=== PATIENT | female | born 1995 | race Caucasian/White ===

== ENCOUNTER → 2018-09-27 12:04 | Outpatient (CLI) | payer MEDICAID, SELFPAY ==
[2018-09-27 14:05] LABS: Absolute Lymphocyte Count 1.03 X10^3/ul (0.83-4.51); Absolute Neutrophil Count 5.7 X10^3/uL (2.0-7.7); Basophil# 0.01 X10^3/uL; Basophil% 0.1 % (0-1); Eosinophil# 0.06 X10^3/uL; Eosinophils% 0.8 % (0-5); Hematocrit 36.2 % (37-47); Hemoglobin 11.6 g/dl (12.0-15.0); Lymphocyte # 1.03 X10^3/ul (4.0); Lymphocyte % 14.5 % (19-41); Mean Corpuscular Hgb 25.7 pg (27.0-32.0); Mean Corpuscular Volume 80.1 fL (81-99); Mean Platelet Vol. 9.8 fl (6.2-12.0); Monocyte# 0.35 X10^3/uL; Monocyte% 4.9 % (0-10); Neutrophil # 5.65 X10^3/uL (2.7-7.7); Neutrophil % 79.6 % (47-70); Platelet Count 260 K/mm3 (150-450); RBC Distribution Width CV 15.8 % (11.6-14.6); RBC Distribution Width SD 45.3 fl (35.1-43.9); Red Blood Count 4.52 M/mm3 (4.2-5.4); White Blood Count 7.1 K/mm3 (4.4-11.0)
[2018-09-27 14:06] LABS: POSITIVE COUNT NO; POSITIVE DIFFERENTIAL NO; POSITIVE MORPHOLOGY NO
[2018-09-27 14:07] LABS: Glucose, Dipstick Normal (Normal); Ketone-Dipstick Negative (Negative); Leukocyte Esterase-Dipstick 500 /ul (Negative); Nitrite-Dipstick Negative (Negative); Occult Blood-Urine 25 /ul (Negative); Protein-Dipstick 30 mg/dl (Negative); Specific Gravity, Urine 1.015 (1.002-1.030); Urine Bilirubin Dipstick Negative (Negative); Urine Urobilinogen Normal (Normal)
[2018-09-27 14:11] LABS: Color, Urine Yellow (Yellow); Urine Clarity Cloudy (Clear)
[2018-09-27 14:14] LABS: Thyroid Stim Hormone (TSH) 1.41 uIU/mL (0.358-3.74)
[2018-09-27 14:54] LABS: HIV - WCH Non-Reactive (Nonreactive); Rubella IgG 127.9 IU/mL
[2018-09-27 17:49] LABS: Chlamydia Trachomatis by PCR Negative (Negative); Neisserai gonorrhoeae by PCR Negative (Negative); Probe Check PASS; Sample Adequacy Control PASS; Specimen Processing Control PASS
[2018-09-28 22:03] LABS: Prenatal RPR NONREACTIVE (NONREACTIVE)
[2018-09-29 22:36] LABS: HEPATITIS B SURFACE AG Negative (Negative); Hep C Antibodies <0.1 s/co ratio (0.0-0.9)
== END ==
PROVIDERS: Visit Provider Obstetrics & Gynecology
DX: Z34.82 Encounter for supervision of other normal pregnancy, second trimester (principal)
CPT/HCPCS: 36415; 81002; 84443; 85025; 86703; 86762; 86803; 87340; 87491; 87591; 88175; G0145

== ENCOUNTER → 2019-01-17 | Outpatient (CLI) | payer MEDICAID, SELFPAY ==
[2019-01-17 13:46] LABS: Hematocrit 31.2 % (37-47); Hemoglobin 9.6 g/dl (12.0-15.0); Mean Corp Hgb Conc 30.8 g/gl (32-36); Mean Corpuscular Hgb 23.2 pg (27.0-32.0); Mean Corpuscular Volume 75.4 fL (81-99); Mean Platelet Vol. 9.6 fl (6.2-12.0); Platelet Count 231 K/mm3 (150-450); RBC Distribution Width CV 15.4 % (11.6-14.6); RBC Distribution Width SD 42.2 fl (35.1-43.9); Red Blood Count 4.14 M/mm3 (4.2-5.4); White Blood Count 6.7 K/mm3 (4.4-11.0)
[2019-01-17 13:49] LABS: Scan Indicated on CBC? Y/N NO
[2019-01-17 13:50] LABS: Glucose Challenge Gest 1H 50g 64 mg/dL (70-140)
== END | disposition home or self-care (01) ==
LOC: LABSPEC 11:22
PROVIDERS: Visit Provider Obstetrics & Gynecology
DX: Z34.82 Encounter for supervision of other normal pregnancy, second trimester (principal)
CPT/HCPCS: 82950; 85027

== ENCOUNTER → 2020-10-31 13:04 | Outpatient (CLI) | payer MEDICAID, SELFPAY ==
[2020-11-04 20:32] LABS: HPV APTIMA, High Risk Negative (Negative); HPV Reflexed? YES, CHARGE PATIENT
== END ==
PROVIDERS: Visit Provider Obstetrics & Gynecology
DX: Z12.4 Encounter for screening for malignant neoplasm of cervix (principal)
CPT/HCPCS: 87624; 88175; G0145

== ENCOUNTER 2021-09-22 16:48 | Outpatient (CLI) | payer MEDICAID, SELFPAY | END 2021-09-22 23:59 | disposition home or self-care (01) | LOC: LABSPEC 17:00 | PROVIDERS: Referring Provider Physician Assistant; Visit Provider Physician Assistant | DX: Z20.822 Contact with and (suspected) exposure to COVID-19 (principal) | CPT/HCPCS: 87635; U0003; U0005 ==

== ENCOUNTER 2023-05-02 00:43 | Emergency (ER) | payer OTHER, MEDICAID, SELFPAY ==
[2023-05-02 00:44] VITALS: BP 140/71; PULSE 83; RESP 16; TEMP 36.4; O2SAT 95; BMI 26.7
--- NOTE | 2023-05-02 02:07 | EX.ED.DYSGE1 ---
HPI History of Present Illness Chief Complaint: Abscess Informant: patient Narrative Narrative: Patient is a 27-year-old female with past medical history of ADHD the acne. 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 She states that despite taking the medication she has developed swelling and pain to the forehead. She states she believes the area was initially just a pimple but as the swelling and pain has progressed she has concern for abscess as she has had those in the past and therefore comes in for evaluation. [facility] Medical History (Updated 05/02/23 @ 03:[address] Shen Cid, DO) ADD (attention deficit disorder) Home Medications dextroamphetamine-amphetamine ER 10 mg 24hr capsule,extend release (Adderall XR) 10 mg PO .afternoon 05/02/23 [History Last Taken Unknown] dextroamphetamine-amphetamine ER 5 mg 24hr capsule,extend release 20 mg PO DAILY 05/02/23 [History Last Taken Unknown] doxycycline monohydrate 100 mg capsule 100 mg PO DAILY 05/02/23 [History Last Taken Unknown] duloxetine 60 mg capsule,delayed release 60 mg PO DAILY 05/02/23 [History Last Taken Unknown] ferrous sulfate 325 mg (65 mg iron) tablet (Feosol) 325 mg PO DAILY 05/02/23 [History Last Taken Unknown] oxycodone-acetaminophen 5 mg-325 mg tablet (Percocet) 1 tab PO Q6H PRN pain 3 days #12 tabs 05/02/23 [Rx Last Taken Unknown] sulfamethoxazole 800 mg-trimethoprim 160 mg tablet (Bactrim DS) 1 tab PO BID 7 days #14 tabs 05/02/23 [Rx Last Taken Unknown] Allergy/AdvReac Type Severity Reaction Status Date / Time No Known Allergies Allergy Verified 05/02/23 00:46 Surgical History (Updated 05/02/23 @ 00:51 by Thu Acuna) H/O section Social History Smoking Status: Current every day smoker tobacco type: e-cigarettes ROS ROS ED Constitutional Constitutional ED: Denies chills or fever(s) ENT ENT ED: Denies sore throat Cardiovascular Cardiovascular: Denies chest pain Respiratory/Chest Respiratory/Chest: Denies cough or dyspnea Gastrointestinal Gastrointestinal: Denies abdominal pain, diarrhea, nausea or vomiting Genitourinary Genitourinary ED: Denies dysuria Musculoskeletal Musculoskeletal: Denies myalgias Integumentary Reports abscess Neurologic Neurologic: Denies headache(s) Hematologic/Lymphatic Hematologic/Lymphatic: Denies easy bleeding or easy bruising EXAM Physical Exam Const Vital Signs: 05/02/23 00:44 Temperature 97.5 F L Temperature Source Temporal Pulse Rate 83 Respiratory Rate 16 Blood Pressure 140/71 H Blood Pressure Mean 94 Pulse Ox 95 Oxygen Delivery Method Room Air Positive well nourished and well developed General Appearance ED: well developed HEENT HEENT Narrative: Along the right portion of the forehead there is a 2 x 3 cm area of fluctuance with mild erythema and warmth concerning for abscess. No active drainage noted. No lymphangitic streaking. Eyes PERRL and EOMs intact bilaterally Neck supple Neck Narrative: No nuchal rigidity or meningeal signs present Resp normal respiratory effort and clear to auscultation bilaterally Cardio regular rate and regular rhythm Extremity normal to inspection Neuro oriented x3, CN's II-XII intact bilaterally and no sensory deficits noted Sensorium / Orientation: alert Motor Exam: strength 5/5 throughout Psych mental status grossly normal Skin Skin Narrative: Soft tissue change of the forehead concerning for abscess as documented above MDM MDM MDM Narrative Medical decision making narrative: Patient presented to the ER hypertensive otherwise with stable vitals. She reported increasing swelling to the forehead after what she believed was initial pimple. At this time exam and history is consistent with abscess versus acne versus cellulitis versus cyst. As there is no signs of systemic infection I do not feel there is need for imaging or laboratory study. Based on the progression of the soft tissue swelling and abscess I did elect to perform an incision and drainage as documented below. Patient does not have history of immunosuppression but as she is on once a day doxycycline for acne I advised her to continue the medication but added Bactrim twice a day for 1 week for any potential retained infection. At this time however the abscess has been incised and drained she does not have physical exam findings to suggest systemic infection and otherwise is safe for discharge Patient had her forehead cleaned with chlorhexidine. The area was anesthetized with 5 mLs of 2% lidocaine with epinephrine local fashion. A #11 blade was used to make a 1 cm incision. There is expression of blood and small amount of purulent material. Loculations were dissected with a needle siddiqi. The area was copiously irrigated with normal saline. Patient tolerated procedure well without complication. History & Record Review Discussion w/independent historian: Patient and Family Discharge Plan Triage Chief Complaint: Abscess ED Provider: Shen Cid Dx/Rx/DC Orders Clinical Impression: Abscess of face, ADD (attention deficit disorder) Instructions: ED Abscess Incision And Drainage Prescriptions: New sulfamethoxazole-trimethoprim [Bactrim DS] 800-160 mg tablet 1 tab PO BID 7 Days Qty: 14 0RF oxycodone-acetaminophen [Percocet] 5-325 mg tablet 1 tab PO Q6H PRN (Reason: pain) 3 Days Qty: 12 0RF No Action duloxetine 60 mg capsule,delayed release(DR/EC) 60 mg PO DAILY Patient Comments: TAKE 1 CAPSULE BY MOUTH EVERY DAY ferrous sulfate [Feosol] 325 mg (65 mg iron) tablet 325 mg PO DAILY doxycycline monohydrate 100 mg capsule 100 mg PO DAILY Patient Comments: TAKE 1 CAPSULE BY MOUTH ONCE A DAY WITH FATTY FOODS & A FULL GLASS OF WATER. dextroamphetamine-amphetamine 5 mg capsule,extended release 24hr 20 mg PO DAILY Patient Comments: TAKE 1 CAPSULE BY MOUTH EVERY DAY IN THE AFTERNOON dextroamphetamine-amphetamine [Adderall XR] 10 mg capsule,extended release 24hr 10 mg PO .afternoon Patient Comments: TAKE 1 CAPSULE BY MOUTH EVERY DAY Primary Care Provider: Radhika Enrique Referrals: Radhika Enrique NP-C [Primary Care Provider] - Activity Restrictions/Additional Instructions: The area of infection should improve/heal over the next 2 to 3 days with the incision and drainage that was performed in the ER. You can continue your doxycycline once a day but add Bactrim twice a day for the next 7 days as directed for improved infection control. If you have worsening of symptoms or any further concerns please return for repeat evaluation. Disposition Disposition: Home, Self Care Discharge Date/Time: 05/02/23 02:16
== END 2023-05-02 02:16 | disposition home or self-care (01) ==
PROVIDERS: Emergency Provider Emergency Medicine; PCP Nurse Practitioner Family; Visit Provider Emergency Medicine
DX: L02.01 Cutaneous abscess of face (principal); F17.210 Nicotine dependence, cigarettes, uncomplicated; F90.0 Attention-deficit hyperactivity disorder, predominantly inattentive type
CPT/HCPCS: 99282

== ENCOUNTER 2023-05-21 19:39 | Emergency (ER) | payer OTHER, SELFPAY ==
[2023-05-21 19:40] VITALS: BP 146/88; PULSE 79; RESP 15; TEMP 36.6; O2SAT 100
--- NOTE | 2023-05-21 19:56 | EDS_ITS ---
HPI History of Present Illness Chief Complaint: Lower Extremity Injury [facility] Medical History (Updated 05/10/23 @ 00:01 by Susan Rodriguez) ADD (attention deficit disorder) Home Medications dextroamphetamine-amphetamine ER 10 mg 24hr capsule,extend release (Adderall XR) 10 mg PO .afternoon 05/02/23 [History Last Taken Unknown] dextroamphetamine-amphetamine ER 5 mg 24hr capsule,extend release 20 mg PO DAILY 05/02/23 [History Last Taken Unknown] doxycycline monohydrate 100 mg capsule 100 mg PO DAILY 05/02/23 [History Last Taken Unknown] duloxetine 60 mg capsule,delayed release 60 mg PO DAILY 05/02/23 [History Last Taken Unknown] ferrous sulfate 325 mg (65 mg iron) tablet (Feosol) 325 mg PO DAILY 05/02/23 [History Last Taken Unknown] oxycodone-acetaminophen 5 mg-325 mg tablet (Percocet) 1 tab PO Q6H PRN pain 3 days #12 tabs 05/02/23 [Rx Last Taken Unknown] sulfamethoxazole 800 mg-trimethoprim 160 mg tablet (Bactrim DS) 1 tab PO BID 7 days #14 tabs 05/02/23 [Rx Last Taken Unknown] Allergy/AdvReac Type Severity Reaction Status Date / Time No Known Allergies Allergy Verified 05/21/23 19:43 Surgical History (Updated 05/02/23 @ 00:51 by Thu Acuna) H/O section Social History Smoking Status: Current every day smoker tobacco type: e-cigarettes EXAM Physical Exam Const Vital Signs: 05/21/23 19:40 Temperature 97.8 F Temperature Source Temporal Pulse Rate 79 Respiratory Rate 15 Blood Pressure 146/88 H Blood Pressure Mean 107 Pulse Ox 100 Oxygen Delivery Method Room Air [facility] MDM Narrative Medical decision making narrative: HISTORY OF PRESENT ILLNESS: 27-year-old female here with left foot injury. States he dropped something heavy on her left foot. She states she has constant pain since then. REVIEW OF SYSTEMS: Pertinent positives: foot pain Pertinent negatives: Sensation. PHYSICAL EXAM: Nursing triage notes reviewed, Vital signs reviewed Constitutional: please see mdm Extremities: No edema TTP over left foot. Neuro: Intact sensation L1-S1 dermatomal distributions. Intact 5/5 strength in hip flexion (T12-L3). Knee extension (L2-L4). Ankle dorsiflexion (L4-L5). Ankle plantar flexion (S1). Great toe extension (L5). 2+ patellar and Achilles DTRs. Skin: No noted bruising over left foot, no evidence of open fracture MEDICAL DECISION MAKING: Chief Complaint: Foot pain External records reviewed: Imaging reviewed: No recent images of the involved ex tremity Factors affecting care: ADHD Social determinants of health: none History obtained from others: none Consults: none MDM Narrative: Patient was hemodynamically stable, afebrile, nontoxic-appearing. I considered the following differential diagnosis: Fracture, dislocation, contusion I obtained an x-ray. ALL IMAGES (IF OBTAINED) HAVE BEEN PERSONALLY REVIEWED AND INTERPRETED BY YONATAN TEJADA. X-ray by my read show no evidence of acute fracture dislocation. Radiologist agreed my interpretation. The patient is likely suffering from contusion. She is given instructions take Tylenol, ibuprofen she was instructed to start rice therapy. The patient and/or family, caregivers express understanding. The patient and/or family, caregivers agrees with the plan. Shared decision making: I will have a discussion with the patient and or visitors regarding risk/benefits of further testing or admission. They will be made aware of of the risk/benefits inherent in this decision they will be given the opportunity to voice understanding. Total critical care time today provided was at least 0 minutes. This excludes separately billable procedures. Critical care time (if documented) is secondary to the patient having high probability of clinically significant/life threatening deterioration in the patient's condition which required my urgent intervention. Impression: 1. Foot contusion Dispo: Discharge Radiography Chest X-Ray - ED: Read by ED Physician Diagnostic Testing: Clinical Impression(s) from Imaging Studies Foot X-Ray 05/21/23 20:00 IMPRESSION: No acute bony injury. Electronically Signed: Marbin Colbert MD at 21:01 EDT Reading Location ID and State: [facility] / [place] Tel , Service support , Discharge Plan Triage Chief Complaint: Lower Extremity Injury ED Provider: Antonio Cotton Dx/Rx/DC Orders Instructions: ED Foot Contusion, ED RICE Prescriptions: No Action duloxetine 60 mg capsule,delayed release(DR/EC) 60 mg PO DAILY Patient Comments: TAKE 1 CAPSULE BY MOUTH EVERY DAY ferrous sulfate [Feosol] 325 mg (65 mg iron) tablet 325 mg PO DAILY doxycycline monohydrate 100 mg capsule 100 mg PO DAILY Patient Comments: TAKE 1 CAPSULE BY MOUTH ONCE A DAY WITH FATTY FOODS & A FULL GLASS OF WATER. dextroamphetamine-amphetamine 5 mg capsule,extended release 24hr 20 mg PO DAILY Patient Comments: TAKE 1 CAPSULE BY MOUTH EVERY DAY IN THE AFTERNOON dextroamphetamine-amphetamine [Adderall XR] 10 mg capsule,extended release 24hr 10 mg PO .afternoon Patient Comments: TAKE 1 CAPSULE BY MOUTH EVERY DAY sulfamethoxazole-trimethoprim [Bactrim DS] 800-160 mg tablet 1 tab PO BID 7 Days Qty: 14 0RF oxycodone-acetaminophen [Percocet] 5-325 mg tablet 1 tab PO Q6H PRN (Reason: pain) 3 Days Qty: 12 0RF Primary Care Provider: Radhika Enrique Referrals: Radhika Enrique, ENDS DOWN CHECKER-C [Primary Care Provider] - Activity Restrictions/Additional Instructions: Thank you for trusting us with your care today! Please take Tylenol (2 pills, 650 mg), ibuprofen (2 pills, 400 mg) every 6 hours as needed for pain and fever control. Please return to the emergency department if your symptoms change or worsen. Please follow with your primary care physician for further outpatient evaluation and management. Disposition Disposition: Home, Self Care
--- NOTE | 2023-05-21 20:00 | RAD_ITS ---
INDICATION: Trauma, object dropped on foot with dorsal midfoot pain EXAMINATION/TECHNIQUE: X-RAY - LEFT XR Foot Min 3 Views 3 VIEWS COMPARISON: None. FINDINGS: SOFT TISSUES: No soft tissue swelling or gas. No radiopaque foreign body. BONES/JOINTS: No acute fracture. Joint spaces anatomically aligned. RAD/Foot min 3 Views IMPRESSION: No acute bony injury. Electronically Signed: Marbin Colbert MD at 21:01 EDT ,
[2023-05-21] MEDS: Ibuprofen 200 MG Tablet 400 MG PO (21:24)
== END 2023-05-21 21:36 | disposition home or self-care (01) ==
PROVIDERS: Emergency Provider Emergency Medicine; PCP Nurse Practitioner Family; Visit Provider Emergency Medicine
DX: S90.32XA Contusion of left foot, initial encounter (principal); F90.9 Attention-deficit hyperactivity disorder, unspecified type; Z79.899 Other long term (current) drug therapy; F17.290 Nicotine dependence, other tobacco product, uncomplicated; W22.8XXA Striking against or struck by other objects, initial encounter
CPT/HCPCS: 73630; 99282

== ENCOUNTER 2023-06-16 13:13 | Emergency (ER) | payer SELFPAY ==
[2023-06-16 13:14] VITALS: BP 149/86; PULSE 88; RESP 14; TEMP 36.1; O2SAT 100; BMI 26.2
[2023-06-16] MEDS: Lidocaine 1% (20 ml mdv) 20 ML Vial 5 ML INFILT (14:32)
[2023-06-16] MEDS: Lidocaine/Epi/Tetracaine 50 ML 1 APPLIC TOPICAL (14:32)
--- NOTE | 2023-06-16 16:01 | EX.ED.DYSGE1 ---
HPI History of Present Illness Chief Complaint: Abscess Detail of Chief Complaint: Forehead abscess. Informant: patient Onset/Context/Timing Onset: Days Context: Gradual Onset Timing: Continuous Maximum Severity: Mild Narrative Narrative: 27-year-old female history of prior forehead abscess that was treated with Bactrim 5 weeks ago and improved but now is returned. She denies any other symptoms. She is not diabetic. Prior similar symptoms: Yes Recent Illness/Hospitalization: No PFSH PFSH Medical History ADD (attention deficit disorder) Home Medications dextroamphetamine-amphetamine ER 10 mg 24hr capsule,extend release (Adderall XR) 10 mg PO .afternoon 05/02/23 [History Last Taken Unknown] dextroamphetamine-amphetamine ER 5 mg 24hr capsule,extend release 20 mg PO DAILY 05/02/23 [History Last Taken Unknown] doxycycline monohydrate 100 mg capsule 100 mg PO DAILY 05/02/23 [History Last Taken Unknown] duloxetine 60 mg capsule,delayed release 60 mg PO DAILY 05/02/23 [History Last Taken Unknown] ferrous sulfate 325 mg (65 mg iron) tablet (Feosol) 325 mg PO DAILY 05/02/23 [History Last Taken Unknown] oxycodone-acetaminophen 5 mg-325 mg tablet (Percocet) 1 tab PO Q6H PRN pain 3 days #12 tabs 05/02/23 [Rx Last Taken Unknown] sulfamethoxazole 800 mg-trimethoprim 160 mg tablet (Bactrim DS) 1 tab PO BID 7 days #14 tabs 05/02/23 [Rx Last Taken Unknown] cephalexin 500 mg capsule 500 mg PO Q8H 10 days #30 caps 06/16/23 [Rx Last Taken Unknown] sulfamethoxazole 800 mg-trimethoprim 160 mg tablet (Bactrim DS) 1 tab PO BID 10 days #20 tabs 06/16/23 [Rx Last Taken Unknown] Allergy/AdvReac Type Severity Reaction Status Date / Time No Known Allergies Allergy Verified 06/16/23 13:14 Surgical History H/O section Social History Smoking Status: Current every day smoker tobacco type: e-cigarettes ROS ROS ED ROS Narrative Denies recent illness. Review of Systems ROS Unobtainable: Denies due to encephalopathy Constitutional Constitutional ED: Denies chills or fever(s) Eyes Eyes: Denies blurry vision ENT ENT ED: Denies ear pain Cardiovascular Cardiovascular: Denies chest pain Respiratory/Chest Respiratory/Chest: Denies cough or dyspnea Gastrointestinal Gastrointestinal: Denies abdominal pain Genitourinary Genitourinary ED: Denies dysuria or hematuria Musculoskeletal Musculoskeletal: Denies arthralgias Integumentary Reports abscess Neurologic Neurologic: Denies headache(s) Psychiatric Psychiatric: Denies anxiety Endocrine Endocrinology: Denies cold intolerance Hematologic/Lymphatic Hematologic/Lymphatic: Reports none Allergic/Immunologic Allergic/Immunologic ED: Denies mouth swelling, tongue swelling or urticaria EXAM Physical Exam Narrative Exam Narrative: -year-old female vital signs are stable and afebrile. No acute distress. HEENT exam is a lesion on her right forehead appears to be infected. It is tender to palpation. It is slightly inflamed. There is no significant fluid collection. Pupils round and light. She also has a lesion that is flat on her chin. Neck nontender. No lymphadenopathy. Lungs clear to auscultation. Heart regular rhythm no murmur. Abdomen soft nontender. Moving all 4 extremities. Const Vital Signs: 06/16/23 13:14 Temperature 97 F L Temperature Source Temporal Pulse Rate 88 Respiratory Rate 14 Blood Pressure 149/86 H Blood Pressure Mean 107 Pulse Ox 100 Oxygen Delivery Method Room Air Positive well nourished and well developed; Negative for obese, cachectic, contractures or unkempt General Appearance ED: well developed and NAD; Negative for unkempt, cachectic, contractures, cyanotic, diaphoretic or pallor Nutritional Appearance: Negative for cachectic or obese HEENT Reports moist mucous membranes Negative for trauma or tenderness Eyes PERRL and EOMs intact bilaterally General Eye ED: Negative for pale conjunctiva, scleral icterus or other Neck no lymphadenopathy, supple and no JVD General: Negative for tenderness Lymph Lymphatic: Negative for other Chest Wall inspection of chest normal and palpation of chest normal Resp normal respiratory effort and clear to auscultation bilaterally Effort and Inspection: Negative for retractions Auscultation: Negative for rales, rhonchi or wheezes Cardio regular rate, regular rhythm, S1 normal heart sound, S2 normal heart sound and no murmurs GI normal to inspection, nondistended, normoactive bowel sounds, non-tender, non-distended and no masses Inspection: Negative for abdominal distention Auscultation: normoactive bowel sounds Palpation: soft; Negative for tender or guarding Extremity normal to inspection General Extremety ED: Negative for edema or tenderness General Extremity: Negative for edema Neuro CN's II-XII intact bilaterally Sensorium / Orientation: alert; Negative for orientation impaired Motor Exam: strength 5/5 throughout Psych mental status grossly normal Appearance: Negative for unkempt Attitude: No agitated Mood & Affect: Negative for depressed, anxious or tearful Skin No no rashes or lesions noted, no wounds and skin turgor normal Skin Narrative: Right forehead infection possible abscess. Not significant fluctuance. General Skin Exam: elasticity normal; Negative for jaundice or pallor Lesions: lesion noted Rashes: No rashes noted Trauma: Negative for abrasion Wounds: Negative for wounds noted MDM MDM MDM Narrative Medical decision making narrative: 27-year-old recurrent right forehead infection. Cellulitis versus abscess. Area was locally anesthetized with let. Cleaned with Shur-Clens wash with saline. Then anesthetized locally with lidocaine. I made a 1 to 2 cm horizontal incision. I was unable to express any pus with manipulation of the area or probing with forceps. Believe this is infected tissue with no abscess formation. No pus pocket. Patient be discharged home on Keflex and Bactrim. Follow-up with a telephone lineman. History & Record Review Discussion w/independent historian: Patient Additional record(s) reviewed:: Prior inpatient record, Prior outpatient record, Prior ED visit and Prior labs Procedures Other Procedures Procedure(s): Right forehead infection. Anesthetized with let. Lidocaine locally. Incised with an 11 blade 1 to 2 cm. Probed with forceps small amount of blood no pus. Patient tolerated well. Discharge Plan Triage Chief Complaint: Abscess ED Provider: Kirill Greene Dx/Rx/DC Orders Clinical Impression: Abscess Instructions: Abscess Drainage Prescriptions: New cephalexin 500 mg capsule 500 mg PO Q8H 10 Days Qty: 30 0RF sulfamethoxazole-trimethoprim [Bactrim DS] 800-160 mg tablet 1 tab PO BID 10 Days Qty: 20 0RF No Action duloxetine 60 mg capsule,delayed release(DR/EC) 60 mg PO DAILY Patient Comments: TAKE 1 CAPSULE BY MOUTH EVERY DAY ferrous sulfate [Feosol] 325 mg (65 mg iron) tablet 325 mg PO DAILY doxycycline monohydrate 100 mg capsule 100 mg PO DAILY Patient Comments: TAKE 1 CAPSULE BY MOUTH ONCE A DAY WITH FATTY FOODS & A FULL GLASS OF WATER. dextroamphetamine-amphetamine 5 mg capsule,extended release 24hr 20 mg PO DAILY Patient Comments: TAKE 1 CAPSULE BY MOUTH EVERY DAY IN THE AFTERNOON dextroamphetamine-amphetamine [Adderall XR] 10 mg capsule,extended release 24hr 10 mg PO .afternoon Patient Comments: TAKE 1 CAPSULE BY MOUTH EVERY DAY sulfamethoxazole-trimethoprim [Bactrim DS] 800-160 mg tablet 1 tab PO BID 7 Days Qty: 14 0RF oxycodone-acetaminophen [Percocet] 5-325 mg tablet 1 tab PO Q6H PRN (Reason: pain) 3 Days Qty: 12 0RF Primary Care Provider: Radhika Enrique Referrals: Maryann Padilla MD [Non-Staff] - As soon as possible Radhika Enrique, SEQUENCING MACHINE OPERATOR-C [Primary Care Provider] - Activity Restrictions/Additional Instructions: Warm compresses to your forehead. Keep a Band-Aid on it. Motrin and Tylenol for pain. Call and follow-up with a local telephone lineman. Flex 1 pill 3 times a day and Bactrim 1 pill twice a day for 10 days. Disposition Disposition: Home, Self Care
[2023-06-16] MEDS: Cephalexin 250 MG Capsule 500 MG PO (16:10)
[2023-06-16] MEDS: Smz/Tmp Ds Tablet 1 TABLET PO (16:10)
== END 2023-06-16 16:16 | disposition home or self-care (01) ==
PROVIDERS: Emergency Provider Emergency Medicine; PCP Nurse Practitioner Family; Visit Provider Emergency Medicine
DX: L02.01 Cutaneous abscess of face (principal); F98.8 Other specified behavioral and emotional disorders with onset usually occurring in childhood and adolescence; Z79.899 Other long term (current) drug therapy; F17.290 Nicotine dependence, other tobacco product, uncomplicated
CPT/HCPCS: 10060; 99283

== ENCOUNTER 2024-12-12 11:17 | Observation (INO) | payer MEDICAID, SELFPAY ==
[2024-12-12 11:18] VITALS: BP 138/59; PULSE 97; RESP 17; TEMP 36.6; O2SAT 100; BMI 24.7
--- NOTE | 2024-12-12 11:40 | EX.ED.DYSGE1 ---
HPI History of Present Illness Chief Complaint: Abd Pain Narrative Narrative: Chief complaint and HPI: Right lower quadrant abdominal pain. 29-year-old female with past medical history of x 2 and tubal ligation, depression presents for evaluation of right lower quadrant abdominal pain. Patient states yesterday she developed diffuse abdominal pain. States she thought she was constipated. Does endorse a constipated bowel movement yesterday evening however pain has continued. Pain is now located more in the right lower quadrant. Worse with movement. Last ate at 9 AM. Endorses nausea but no emesis. Denies any fever, chills, shortness of breath, chest pain, dysuria, hematuria, diarrhea. Review of systems: See HPI Medications: As listed on the chart Allergies: As listed on the chart PFSH: Per chart Vital signs: As listed on the chart. Reviewed. Physical exam: Gen: A&O x3, NAD Head: Normocephalic, atraumatic Eyes: No sclera icterus, conjunctiva clear ENT: Moist mucous membranes Neck: Trachea midline, No JVD CV: RRR, no murmurs, no peripheral edema Resp: Lungs CTA BL, no w/r/c GI: Abd soft, non-distended, tender to palpation of the right lower quadrant, no rebound or rigidity : No CVA tenderness Musc: Full ROM, no deformity Skin: Warm, dry Neuro: Alert, oriented, grossly intact, sensation intact Psych: Cooperative, appropriate mood and affect [facility] Medical History ADD (attention deficit disorder) Home Medications ?Medication ?Instructions ?Recorded ?Last Taken ?Type duloxetine 60 mg capsule,delayed 60 mg PO DAILY 05/02/23 12/12/24 History release ferrous sulfate 325 mg (65 mg 325 mg PO DAILY 05/02/23 12/11/24 History iron) tablet (Feosol) acetaminophen 325 mg tablet (Aphen) 650 mg PO Q4H PRN pain 12/12/24 12/12/24 History celecoxib 200 mg capsule 200 mg PO BID PRN pain 12/12/24 12/11/24 History dextroamphetamine-amphetamine 5 mg 1 tab PO DAILY 12/12/24 12/07/24 History tablet dextroamphetamine-amphetamine ER 1 cap PO DAILY 12/12/24 12/07/24 History 25 mg 24hr capsule,extend release ergocalciferol (vitamin D2) 1,250 1,250 mcg PO QWEEK 12/12/24 12/10/24 History mcg (50,000 unit) capsule Allergy/AdvReac Type Severity Reaction Status Date / Time No Known Allergies Allergy Verified 12/12/24 11:21 Surgical History H/O section Social History Smoking Status: Current every day smoker tobacco type: e-cigarettes EXAM Physical Exam Const Vital Signs: 12/12/24 11:18 12/12/24 13:18 Temperature 97.9 F Temperature Source Temporal Pulse Rate 97 78 Respiratory Rate 17 16 Blood Pressure 138/59 H 120/68 Blood Pressure Mean 85 85 Pulse Ox 100 98 Oxygen Delivery Method Room Air Room Air MDM MDM MDM Narrative Medical decision making narrative: 29-year-old female with past medical history of x 2 and tubal ligation, depression presents for evaluation of right lower quadrant abdominal pain. Associated symptoms nausea. Differential diagnosis includes but is not limited to appendicitis, gastroenteritis, UTI, colitis, constipation. NS bolus, Zofran, morphine ordered for symptoms. Abdominal pain workup ordered including CT abdomen and pelvis. CBC without leukocytosis or anemia. CMP unremarkable without electrolyte abnormality, LISA or transaminitis. Lipase unremarkable. Serum negative. UA negative for UTI. CT abdomen pelvis shows cholelithiasis without evidence of acute cholecystitis. Enlarged globular uterus which may be normal or secondary to adenomyosis, , or endometriosis. Enlarged right ovary with multiple simple cysts. If concern for ovarian pathology, recommend ultrasound. Nondependent gas within the urinary bladder. On reevaluation, patient is still endorsing some right lower quadrant abdominal pain therefore pelvic ultrasound ordered to assess for pelvic/ovarian pathology. Pelvic ultrasound pending at this time. Patient signed out to Dr. Andrea. Final disposition pending results however if negative patient will be discharged home and follow-up outpatient. Impression: 1. Right lower quadrant abdominal pain 2. Enlarged right ovary with multiple simple cysts Lab Data Labs: Laboratory Results - last 24 hr 12/12/24 12/12/24 11:56 12:50 WBC 9.9 RBC 4.62 Hgb 13.7 Hct 40.3 MCV 87.2 MCH 29.7 MCHC 34.0 RDW Std Deviation 39.1 RDW Coeff of [place] 12.2 Plt Count 226 MPV 9.1 Immature Gran % (Auto) 0.700 Neut % (Auto) 82.3 H Lymph % (Auto) 7.1 L [place] % (Auto) 9.2 Eos % (Auto) 0.5 Baso % (Auto) 0.2 Absolute Neuts (auto) 8.2 H Absolute Lymphs (auto) 0.70 L Nucleated RBC % 0 Sodium 136 Potassium 3.7 Chloride 103 Carbon Dioxide 24.4 Anion Gap 9 BUN 9 Creatinine 0.71 Estim Creat Clear Calc 114.72 Est GFR (MDRD) Non-Af 119 BUN/Creatinine Ratio 12.3 Glucose 96 Calcium 9.2 Total Bilirubin 0.92 AST 17 ALT 15 Alkaline Phosphatase 61 Total Protein 6.7 Albumin 4.2 Globulin 2.5 Albumin/Globulin Ratio 1.7 Lipase 16 Serum , Qual NEGATIVE Urine Color Yellow Urine Clarity Clear Urine pH 7.0 Ur Specific [place] 1.005 Urine Protein Negative Urine Glucose (UA) Normal Urine Ketones Negative Urine Occult Blood Negative Urine Nitrite Negative Urine Bilirubin Negative Urine Urobilinogen Normal Ur Leukocyte Esterase 25 H Urine RBC 0 SEEN Urine WBC 0-5 SEEN Ur Squamous Epith Cells 0-5 SEEN Urine Bacteria 0 SEEN Urine Mucus 0 SEEN Radiography Diagnostic Testing: Clinical Impression(s) from Imaging Studies Abdomen/Pelvis CT 12/12/24 13:00 IMPRESSION: 1. Cholelithiasis without evidence of acute cholecystitis. If clinical concern for gallbladder pathology, limited right upper quadrant ultrasound could be obtained for further evaluation. 2. Enlarged, globular uterus which may be normal, or secondary to adenomyosis, or endometriosis. 3. Enlarged right ovary with multiple simple cysts. If concern for ovarian pathology, pelvic ultrasound could be obtained for further evaluation. 4. Nondependent gas within the urinary bladder. Correlation with recent instrumentation recommended. Reading Location: [id number] Discharge Plan Triage Chief Complaint: Abd Pain ED Provider: Zane Linder Dx/Rx/DC Orders Prescriptions: No Action duloxetine 60 mg capsule,delayed release(DR/EC) 60 mg PO DAILY Patient Comments: TAKE 1 CAPSULE BY MOUTH EVERY DAY ferrous sulfate [Feosol] 325 mg (65 mg iron) tablet 325 mg PO DAILY celecoxib 200 mg capsule 200 mg PO BID PRN (Reason: pain) ergocalciferol (vitamin D2) 1,250 mcg (50,000 unit) capsule 1,250 mcg PO QWEEK dextroamphetamine-amphetamine 5 mg tablet 1 tab PO DAILY dextroamphetamine-amphetamine 25 mg capsule,extended release 24hr 1 cap PO DAILY acetaminophen [Aphen] 325 mg tablet 650 mg PO Q4H PRN (Reason: pain) Primary Care Provider: Radhika Enrique Referrals: Radhika Enrique, [facility] [Primary Care Provider] - Print Language: Kinyarwanda
[2024-12-12] MEDS: 0.9% Normal Saline (1000mL) 1,000 ML 999 ML IV (12:07)
[2024-12-12] MEDS: Ondansetron 4 MG/2 ML Vial IV ×2 (12:07→18:55)
[2024-12-12] MEDS: Morphine 4 MG/ML Syringe IV ×2 (12:07→18:55)
[2024-12-12 12:09] LABS: Absolute Neutrophil Count 8.2 X10^3/uL (2.0-7.7); Basophil# 0.02 X10^3/uL; Basophil% 0.2 % (0-1); Eosinophil# 0.05 X10^3/uL; Eosinophils% 0.5 % (0-5); Hematocrit 40.3 % (37-47); Hemoglobin 13.7 g/dL (12.0-15.0); Lymphocyte % 7.1 % (19-41); Mean Corpuscular Hgb 29.7 pg (27.0-32.0); Mean Corpuscular Volume 87.2 fL (81-99); Mean Platelet Vol. 9.1 fl (6.2-12.0); Monocyte# 0.91 X10^3/uL; Monocyte% 9.2 % (0-10); NRBC Flagged by Analyzer 0 % (0-5); Neutrophil # 8.15 X10^3/uL (2.7-7.7); Neutrophil % 82.3 % (47-70); Platelet Count 226 K/mm3 (150-450); RBC Distribution Width CV 12.2 % (11.6-14.6); RBC Distribution Width SD 39.1 fl (35.1-43.9); Red Blood Count 4.62 M/mm3 (4.2-5.4); White Blood Count 9.9 K/mm3 (4.4-11.0)
[2024-12-12 12:42] LABS: ALB/GLOB Ratio 1.7 RATIO (0.9-2.4); AST(SGOT) 17 U/L (<=31); Alanine Aminotransfer ALT/SGPT 15 U/L (<=34); Albumin, Serum 4.2 g/dL (3.5-5.0); Alkaline Phosphatase 61 U/L (35-104); Anion Gap 9 (5-15); BUN 9 mg/dL (4-19); BUN/Creat Ratio 12.3 RATIO (10-20); Calcium,Total 9.2 mg/dL (7.6-11.0); Carbon Dioxide 24.4 mmol/L (21.0-32.0); Chloride 103 mmol/L (98-108); Creatinine, Serum 0.71 mg/dL (0.70-1.20); EST Glomerular Filtration Rate 119 (>60); Estimated Creatinine Clearance 114.72 ml/min (50-250); Globulin 2.5 g/dL (2.2-4.2); Glucose 96 mg/dL (70-99); Lipase 16 U/L (13-75); Potassium 3.7 mmol/L (3.3-5.1); Protein, Total 6.7 g/dL (5.9-8.4); Sodium Level 136 mmol/L (133-145); Total Bilirubin 0.92 mg/dL (0.00-1.30)
[2024-12-12 12:43] LABS: Internal QC Validated? YES +Cl - CLEAR BKGD; Pregnancy, Serum, hCG Quali. NEGATIVE Negative
[2024-12-12 12:58] LABS: Bacteria 0 SEEN /hpf (None Seen); Mucous, Urine 0 SEEN /hpf (<or=2+); Red Blood Cells-Urine 0 SEEN /hpf (0-5)
--- NOTE | 2024-12-12 13:00 | CT_ITS ---
PROCEDURE: ABDOMEN/PELVIS W IV CONT ONLY 12/12/2024 REASON FOR EXAM: RIGHT LOWER QUADRANT ABDOMINAL PAIN TECHNIQUE: Abdomen and pelvis CT with intravenous contrast. Coronal and Sagittal reconstruction series were provided. PATIENT PREPARATION: Per protocol ORAL CONTRAST TYPE: None. CONTRAST: Isovue 370 VOLUME: 100 mL One or more dose reduction techniques were used (e.g., Automated exposure control, adjustment of the mA and/or kV according to patient size, use of iterative reconstruction technique. RADIATION DOSE SUMMARY: CTDlvol: 25 mGy DLP: 700 mGycm COMPARISON: None. FINDINGS: Lung bases: Bibasilar atelectasis/scarring. The heart is normal in size. Liver: The liver is normal in size without focal hepatic mass. The major portal veins are patent. No biliary ductal dilation. Gallbladder: Small stone within the gallbladder neck. No gallbladder wall thickening or pericholecystic fluid. Spleen: Normal size. Pancreas: Unremarkable. Adrenals: No adrenal mass. Kidneys: No hydronephrosis or nephrolithiasis. Bladder: The urinary bladder is mildly distended with nondependent intraluminal gas. Reproductive Organs: Enlarged, globular uterus. Surgical clips within the left pelvis. Enlarged right ovary demonstrating multiple simple cysts. Small volume ascites within the pelvic cul-de-sac. Bowel: The bowel loops are normal in caliber. No abdominal ascites or free air. Normal appendix. Lymph nodes: No suspicious lymph node enlargement. Vasculature: The abdominal aorta and IVC are normal in caliber. Bones: No aggressive osseous lesions. CT/Abdomen/Pelvis W IV Cont ONLY IMPRESSION: 1. Cholelithiasis without evidence of acute cholecystitis. If clinical concern for gallbladder pathology, limited right upper quadrant ultrasound could be obtained for further evaluation. 2. Enlarged, globular uterus which may be normal, or secondary to adenomyosis, or endometriosis. 3. Enlarged right ovary with multiple simple cysts. If concern for ovarian pat hology, pelvic ultrasound could be obtained for further evaluation. 4. Nondependent gas within the urinary bladder. Correlation with recent instru mentation recommended. Reading Location: [facility]
[2024-12-12 13:04] LABS: Color, Urine Yellow (Yellow); Glucose, Dipstick Normal (Normal); Ketone-Dipstick Negative (Negative); Leukocyte Esterase-Dipstick 25 /ul (Negative); Nitrite-Dipstick Negative (Negative); Occult Blood-Urine Negative /ul (Negative); Protein-Dipstick Negative (Negative); Specific Gravity, Urine 1.005 (1.002-1.030); Urine Bilirubin Dipstick Negative (Negative); Urine Clarity Clear (Clear); Urine Urobilinogen Normal (Normal)
[2024-12-12 13:15] LABS: Squamous Epithelial Cells - UA 0-5 SEEN /hpf (5-10)
[2024-12-12 13:16] LABS: White Blood Cells 0-5 SEEN /hpf (0-5)
[2024-12-12 13:18] VITALS: BP 120/68; PULSE 78; RESP 16; O2SAT 98
--- NOTE | 2024-12-12 14:20 | US_ITS ---
PROCEDURE: TRANSVAGINAL NON- (USTVAG), 12/12/2024 REASON FOR EXAM: RIGHT LOWER QUADRANT PAIN, RULE OUT TORSION TECHNIQUE: Grayscale, color Doppler, and spectral Doppler transvaginal pelvic ultrasound was performed. COMPARISON: CT of same date FINDINGS: Uterus: 9.1 x 5.7 x 5.4 cm, Anteflexed. Unremarkable echotexture. Suspect a C- section scar along the anterior lower uterine segment. Hypoechoic slightly exophytic subserosal/broadly pedunculated presumed fibroid measures 1.6 x 1.6 x 1.5 cm. Endometrium: 16 mm, echogenic secretory appearance. Cervix: Nabothian cysts Right ovary: 4.0 x 2.2 x 2.5 cm (estimated volume 11.7 mL). 1.6 x 1.6 cm peripherally vascular likely corpus luteal cyst. Normal low resistance arterial and venous waveforms. Left ovary: 3.6 x 1.7 x 1.5 cm (estimated volume 4.7 mL), unremarkable. Normal low resistance arterial and venous waveforms. Free fluid: Small volume free fluid. Other: None. US/Transvaginal Non- IMPRESSION: 1. No convincing evidence of ovarian torsion. 2. 1.6 cm RIGHT ovarian probable corpus luteal cyst, which can be a self-limite d source of abdominopelvic pain, O-RADS 1, no follow-up needed. 3. Small volume pelvic free fluid, potentially physiologic in this demographic. 4. 1.6 cm presumed uterine fibroid. 5. Additional description as above. Reading Location: [id number]
[2024-12-12 17:15] VITALS: BP 101/56; PULSE 78; RESP 16; O2SAT 98
--- NOTE | 2024-12-12 18:50 | US_ITS ---
PROCEDURE: GALLBLADDER 12/12/2024 REASON FOR EXAM: RUQ PAIN FINDINGS: Liver: Grossly normal size and echotexture. Gallbladder: A single echogenic gallstone is identified. Common bile duct: Normal measuring 4 mm. Pancreas: Visualized portions are sonographically unremarkable. Other: Small amount of ascites. US/Gallbladder IMPRESSION: Cholelithiasis. Small amount of ascites. Reading Location: [id number]
[2024-12-12 19:00] VITALS: BP 114/63; PULSE 78; RESP 16; O2SAT 97
--- NOTE | 2024-12-12 19:45 | CT_ITS ---
PROCEDURE: ABDOMEN/PEL W ORAL CONT ONLY 12/12/2024 REASON FOR EXAM: RLQ ABD PAIN, ABNORMAL TRANSVERSE COLON TECHNIQUE: Abdomen and pelvis CT without intravenous contrast. Noncontrast technique limits evaluation of the abdominal and pelvic viscera. Coronal and Sagittal reconstruction series were provided. One or more dose reduction techniques were used (e.g., Automated exposure control, adjustment of the mA and/or kV according to patient size, use of iterative reconstruction technique). PATIENT PREPARATION: Per protocol ORAL CONTRAST TYPE: None. AMOUNT: mL COMPARISON: 12/12/2024 FINDINGS: Lung bases: Lung bases are clear. Liver: Normal size. No obvious mass. Gallbladder: Low-density stone in the gallbladder consistent with cholelithiasis. Spleen: Normal size. Pancreas: Normal size. No surrounding inflammation. Adrenals: Unremarkable. Kidneys: No urolithiasis. No hydronephrosis. Bladder: Unremarkable. Filled with excreted contrast. Reproductive Organs: Unremarkable. Bowel: Short segment of proximal transverse colon demonstrates wall thickening and stranding of the surrounding fat along the superior margin consistent with focal colitis. This may be secondary to infectious colitis or diverticulitis even though no diverticula are seen. No loculated fluid collection to suggest abscess. No pneumoperitoneum to suggest perforation. Appendix: Unremarkable. Lymph nodes: Unremarkable. Vasculature: The abdominal aorta and IVC contours are normal. Noncontrast technique limits evaluation. Peritoneum / Retroperitoneum: Small volume free fluid in the pelvis nonspecific and usually physiologic in a female patient of this age. Bones: Unremarkable. CT/Abdomen/Pel W ORAL Cont Only IMPRESSION: Focal colitis of the proximal transverse colon without abscess or perforation. Differential diagnosis includes infectious colitis or diverticulitis even though no diverticular seen. Cholelithiasis. Reading Location: [id number]
[2024-12-12 21:00] VITALS: BP 119/64; PULSE 87; RESP 16; O2SAT 98
--- NOTE | 2024-12-12 22:58 | PCM.HP.STD ---
HPI - General General Date of Admission: 12/12/24 Date of Service: 12/12/24 Chief Complaint: Intractable abdominal pain HPI Narrative The patient is a 29 y/o F w/ PMHx: ADHD, Chronic Fe deficiency anemia, Anxiety and Depression, Tobacco use (e-cigarette usage) who presents to the [facility] ED on 12/12/24 with onset of right lower quadrant abdominal discomfort starting the day previously with diffuse abdominal pain initially with concern for constipation with later in the evening from bowel movements however the pain continued and became more focal to the right lower quadrant, worse with movements with last oral intake at 9 AM day of presentation with nausea without emesis with no fevers or chills but given persistent discomfort prompted eventual ED evaluation. Initially patient rated pain 8 out of 10 in severity prior to any treatment w with improvement following assessment 3 out of 10 in severity. Patient had repeat assessment with recurrent pain noting pain 10 out of 10 with repeat assessment following pain regimen in the ED notable for 5-6 out of 10. In the ED upon evaluation pain primarily on the right abdomen including right lower and more so right upper with deep palpation. In the ED upon evaluation rating pain 7-8 out of 10 in severity but more comfortable appearing in pain level appearance. Workup in the ED included T97.9 Temporal, heart rate 97, BP 130/59, respiratory rate 17, 100% on room air with most recent repeat vitals heart rate 78, BP 114/63, respiratory rate 16, 97% room air, CBC with WBC 9.9, hemoglobin 13.7, platelet 226 with left shift and lymphopenia, unremarkable CMP, serum negative, unremarkable hepatic profile, urinalysis unremarkable, CT abdomen pelvis with IV contrast only read as cholelithiasis without evidence of acute cholecystitis, enlarged globular uterus, enlarged right ovary with multiple simple cysts, nondependent gas within the urinary bladder however there is an ovary that is pending, transvaginal ultrasound with no evidence of any ovarian torsion, 1.6 cm right ovarian probable corpus luteal cyst, small volume pelvic free fluid, 1.6 cm presumed uterine fibroid, gallbladder ultrasound without acute findings, follow-up CT of the abdomen with oral contrast with focal colitis of the proximal transverse colon without any abscess or perforation with no diverticular particularly seen, evidence of cholelithiasis. In the ED patient ministered Zofran 4 mg IV x 2, morphine 4 mg IV x 2, 1 L normal saline. PFSH Medical History (Updated 12/13/24 @ 00:[address] Ariadna Hodge MD) Vaping nicotine dependence, tobacco product Anxiety and depression ADD (attention deficit disorder) Home Medications ?Medication ?Instructions ?Recorded ?Last Taken ?Type duloxetine 60 mg capsule,delayed 60 mg PO DAILY 05/02/23 12/12/24 History release ferrous sulfate 325 mg (65 mg 325 mg PO DAILY 05/02/23 12/11/24 History iron) tablet (Feosol) acetaminophen 325 mg tablet (Aphen) 650 mg PO Q4H PRN pain 12/12/24 12/12/24 History celecoxib 200 mg capsule 200 mg PO BID PRN pain 12/12/24 12/11/24 History dextroamphetamine-amphetamine 5 mg 1 tab PO DAILY 12/12/24 12/07/24 History tablet dextroamphetamine-amphetamine ER 1 cap PO DAILY 12/12/24 12/07/24 History 25 mg 24hr capsule,extend release ergocalciferol (vitamin D2) 1,250 1,250 mcg PO QWEEK 12/12/24 12/10/24 History mcg (50,000 unit) capsule Allergy/AdvReac Type Severity Reaction Status Date / Time No Known Allergies Allergy Verified 12/12/24 11:21 Family History (Updated 12/13/24 @ 00:[address] Ariadna Hodge MD) Mother Bowel disease Father Hypertension Heart disease Cancer Renal CA CVA (cerebral vascular accident) PAF (paroxysmal atrial fibrillation) Surgical History (Updated 12/13/24 @ 00:[address] Ariadna Hodge MD) History of bilateral tubal ligation H/O section Social History (Updated 12/13/24 @ 00:[address] Ariadna Hodge MD) household members: significant other and children Smoking Status: Current every day smoker tobacco type: e-cigarettes Electronic Cigarette Use: with nicotine alcohol intake: never substance use type: does not use ROS ROS Narrative Admission Review of Systems: CONSTITUTIONAL: No weight loss, fever, chills, + weakness or fatigue. HEENT: Eyes: No visual loss, blurred vision, double vision or yellow sclerae. Ears, Nose, Throat: No hearing loss, sneezing, congestion, runny nose or sore throat. SKIN: No rash or itching, lesions, wounds. CARDIOVASCULAR: No chest pain, chest pressure or chest discomfort, palpitations, edema, orthopnea, syncopal events. RESPIRATORY: No shortness of breath, cough or sputum, wheezing, hemoptysis. GASTROINTESTINAL: + anorexia, nausea without emesis, constipation, abdominal pain. No diarrhea, melena, BRBPR. GENITOURINARY: No dysuria, frequency, urgency or retention. NEUROLOGICAL: No headache, dizziness, syncope, paralysis, ataxia, numbness or tingling in the extremities, focal weakness, change in bowel or bladder control, seizure. MUSCULOSKELETAL: No muscle, back pain, joint pain or stiffness. HEMATOLOGIC: No active history of bleeding or bruising. + History of chronic iron deficiency anemia. LYMPHATICS: No enlarged nodes. No history of splenectomy. PSYCHIATRIC: + History of anxiety/depression, ADHD. ENDOCRINOLOGIC: No reports of sweating, cold or heat intolerance. No polyuria or polydipsia. ALLERGIES: No history of asthma, hives, eczema or rhinitis. Vital Signs Vital Signs Vital Signs: 12/12/24 11:18 12/12/24 13:18 12/12/24 17:15 Temperature 97.9 F Temperature Source Temporal Pulse Rate 97 78 78 Respiratory Rate 17 16 16 Blood Pressure 138/59 H 120/68 101/56 L Blood Pressure Mean 85 85 71 Pulse Ox 100 98 98 Oxygen Delivery Method Room Air Room Air Room Air 12/12/24 19:00 12/12/24 21:00 Temperature Temperature Source Pulse Rate 78 87 Respiratory Rate 16 16 Blood Pressure 114/63 119/64 Blood Pressure Mean 80 82 Pulse Ox 97 98 Oxygen Delivery Method Room Air Room Air Weight Weight: 157 lb 9.6 oz Body Mass Index (BMI) 24.7 Physical Exam Narrative Physical Examination: General: Awake, alert, oriented x 3 and cooperative, seated upright in the ED bed in no apparent distress despite pain reported as 7-8 out of 10 in severity. Skin: Normal color, normal turgor, no icterus, no cyanosis. HEENT: AT/NC, EOMI, PERRLA, moderately dry MM, no carotid bruits or JVD noted. Lungs: CTA bilaterally, moderate effort, mild decrease BL bases, no rales, ronchi or wheezing. Heart: Regular rate and rhythm; no gallop, rub audible. Abdomen: Soft, with stethoscope heavy pressure no obvious grimacing in all quadrants, with manual palpation some discomfort to the right lower quadrant and more so right upper quadrant with deep palpation as well as mild epigastric region, no obvious distention, mildly hyperactive BS, no HSM. Extremities: No cyanosis, clubbing, or edema. Neurological: Patient awake, alert, oriented as noted, cognitive function intact; pupils equally reactive to light and accommodation, cranial nerves grossly normal, moving all 4 extremities, no focal deficits, strength moderately globally decreased secondary to acute presentation. Psychiatric: Affect appears mildly flat, fatigued, no acute evidence of depressive or anxiety feelings but does have underlying history. Results Lab / Micro Data 12/12/24 11:56 12/12/24 11:56 Labs: Laboratory Results - last 24 hr 12/12/24 11:56: WBC 9.9, RBC 4.62, Hgb 13.7, Hct 40.3, MCV 87.2, MCH 29.7, MCHC 34.0, RDW Std Deviation 39.1, RDW Coeff of [place] 12.2, Plt Count 226, MPV 9.1, Immature Gran % (Auto) 0.700, Neut % (Auto) 82.3 H, Lymph % (Auto) 7.1 L, [place] % (Auto) 9.2, Eos % (Auto) 0.5, Baso % (Auto) 0.2, Absolute Neuts (auto) 8.2 H, Absolute Lymphs (auto) 0.70 L, Nucleated RBC % 0, Sodium 136, Potassium 3.7, Chloride 103, Carbon Dioxide 24.4, Anion Gap 9, BUN 9, Creatinine 0.71, Estim Creat Clear Calc 114.72, Est GFR (MDRD) Non-Af 119, BUN/Creatinine Ratio 12.3, Glucose 96, Calcium 9.2, Total Bilirubin 0.92, AST 17, ALT 15, Alkaline Phosphatase 61, Total Protein 6.7, Albumin 4.2, Globulin 2.5, Albumin/Globulin Ratio 1.7, Lipase 16, Serum , Qual NEGATIVE 12/12/24 12:50: Urine Color Yellow, Urine Clarity Clear, Urine pH 7.0, Ur Specific [place] 1.005, Urine Protein Negative, Urine Glucose (UA) Normal, Urine Ketones Negative, Urine Occult Blood Negative, Urine Nitrite Negative, Urine Bilirubin Negative, Urine Urobilinogen Normal, Ur Leukocyte Esterase 25 H, Urine RBC 0 SEEN, Urine WBC 0-5 SEEN, Ur Squamous Epith Cells 0-5 SEEN, Urine Bacteria 0 SEEN, Urine Mucus 0 SEEN Imaging Radiology Impression Abdomen/Pelvis CT 12/12/24 13:00 IMPRESSION: 1. Cholelithiasis without evidence of acute cholecystitis. If clinical concern for gallbladder pathology, limited right upper quadrant ultrasound could be obtained for further evaluation. 2. Enlarged, globular uterus which may be normal, or secondary to adenomyosis, or endometriosis. 3. Enlarged right ovary with multiple simple cysts. If concern for ovarian pathology, pelvic ultrasound could be obtained for further evaluation. 4. Nondependent gas within the urinary bladder. Correlation with recent instrumentation recommended. Reading Location: [id number] Transvaginal US 12/12/24 14:20 IMPRESSION: 1. No convincing evidence of ovarian torsion. 2. 1.6 cm RIGHT ovarian probable corpus luteal cyst, which can be a self-limited source of abdominopelvic pain, O-RADS 1, no follow-up needed. 3. Small volume pelvic free fluid, potentially physiologic in this demographic. 4. 1.6 cm presumed uterine fibroid. 5. Additional description as above. Reading Location: [id number] Gallbladder Ultrasound 12/12/24 18:50 IMPRESSION: Cholelithiasis. Small amount of ascites. Reading Location: REG Abdomen CT 12/12/24 19:45 IMPRESSION: Focal colitis of the proximal transverse colon without abscess or perforation. Differential diagnosis includes infectious colitis or diverticulitis even though no diverticular seen. Cholelithiasis. Reading Location: [id number] Assessment & Plan Assessment/Plan (1) Focal active colitis: PLAN: Plan The patient is a 29 y/o F w/ PMHx: ADHD, Chronic Fe deficiency anemia, Anxiety and Depression, Tobacco use (e-cigarette usage) who presents to the [facility] ED on 12/12/24 with onset of right lower quadrant abdominal discomfort starting the day previously with diffuse abdominal pain initially with concern for constipation with later in the evening from bowel movements however the pain continued and became more focal to the right lower quadrant, worse with movements with last oral intake at 9 AM day of presentation with nausea without emesis with no fevers or chills but given persistent discomfort prompted eventual ED evaluation. #1. Intractable abdominal pain with associated nausea without emesis with focal colitis in the proximal transverse colon without any abscess or perforation: Will admit to medical surgical floor as observation, will maintain on clears, will continue oral and IV pain regimen given intractable discomfort, will initiate given stable labs on low-dose scheduled Toradol, will continue to hydrate, will maintain on IV PPI until tolerating oral intake better, will initiate on IV Zosyn w/ procalcitonin and ESR/CRP requested, advance diet as tolerated. Will need follow-up outpatient with gastroenterology. #2. Anxiety and depression/ADHD.: Will continue patient home duloxetine regimen as well as ADHD regimen. #3. Chronic iron deficiency anemia: Admission hemoglobin 13.7, MCV 87.2, baseline previous hemoglobin from 2019 had been low however that may have been also associate with , clarifying if she still is on iron supplementation as this is currently listed. Given current constipation will temporarily hold until further clarified. #4. Tobacco Abuse with e-cigarettes: Encouraged cessation, inpatient consultation per RT, NR if desired. #5. DVT prophylaxis: Encourage ambulation, low risk given observation. Charges/Coding Visit Charges Inpatient E&M: 39701 Init Hosp L2
[2024-12-12 23:25] VITALS: BP 125/88; PULSE 77; RESP 16; TEMP 37.1; O2SAT 99
[2024-12-12 23:58] LABS: Erythrocyte Sedimentation Rate 5 mm/hr (0-30)
[2024-12-13 00:04] VITALS: BMI 24.9
[2024-12-13 00:20] VITALS: BP 107/57; PULSE 62; RESP 16; TEMP 36.6; O2SAT 98
[2024-12-13] MEDS: 0.9% Saline Lock 10 ML Syringe IV ×4 (00:37→13:53)
[2024-12-13] MEDS: 0.9% Normal Saline (1000mL) 1,000 ML 100 ML IV (00:37)
[2024-12-13] MEDS: Ketorolac 30 MG/ML Syringe IV ×4 (00:37→20:55)
[2024-12-13] MEDS: Pantoprazole Sodium 40 MG in 0.9% Normal Saline (100mL MB+) 100 ML 330 MG IV ×3 (00:48→20:41)
[2024-12-13] MEDS: Piperacil/Tazobactam 3.375 GM in 0.9% Normal Saline (50mL MB+) 50 ML IV ×2 (01:21→05:42)
[2024-12-13 01:35] LABS: Procalcitonin 0.07 ng/mL (<=0.10)
[2024-12-13 05:42] VITALS: BMI 24.9
[2024-12-13 06:24] VITALS: BP 98/54; PULSE 63; RESP 16; TEMP 36.6; O2SAT 98
[2024-12-13 07:11] VITALS: O2SAT 96
[2024-12-13 07:51] VITALS: BP 118/61; PULSE 64; RESP 15; TEMP 36.4; O2SAT 96
[2024-12-13] MEDS: DULoxetine Hcl 60 MG Capsule PO (07:55)
[2024-12-13] MEDS: oxyCODONE 5 MG Tablet PO ×3 (07:57→23:42)
[2024-12-13] MEDS: Ensure Clear 120 ML Liquid PO ×3 (07:57→17:13)
[2024-12-13 07:58] LABS: Absolute Lymphocyte Count 1.17 X10^3/uL (0.83-4.51); Absolute Neutrophil Count 4.7 X10^3/uL (2.0-7.7); Basophil# 0.04 X10^3/uL; Basophil% 0.6 % (0-1); Eosinophil# 0.11 X10^3/uL; Eosinophils% 1.7 % (0-5); Hematocrit 36.3 % (37-47); Lymphocyte # 1.17 X10^3/ul (0.83-4.51); Lymphocyte % 18.1 % (19-41); Mean Corp Hgb Conc 33.1 g/dL (32-36); Mean Corpuscular Hgb 29.4 pg (27.0-32.0); Mean Platelet Vol. 9.4 fl (6.2-12.0); Monocyte# 0.45 X10^3/uL; NRBC Flagged by Analyzer 0 % (0-5); Neutrophil # 4.68 X10^3/uL (2.7-7.7); Neutrophil % 72.4 % (47-70); Platelet Count 219 K/mm3 (150-450); RBC Distribution Width CV 12.1 % (11.6-14.6); RBC Distribution Width SD 39.5 fl (35.1-43.9); Red Blood Count 4.08 M/mm3 (4.2-5.4); White Blood Count 6.5 K/mm3 (4.4-11.0)
[2024-12-13 08:48] LABS: ALB/GLOB Ratio 1.4 RATIO (0.9-2.4); AST(SGOT) 14 U/L (<=31); Alanine Aminotransfer ALT/SGPT 12 U/L (<=34); Albumin, Serum 3.5 g/dL (3.5-5.0); Alkaline Phosphatase 56 U/L (35-104); Anion Gap 13 (5-15); BUN 14 mg/dL (4-19); Calcium,Total 8.4 mg/dL (7.6-11.0); Carbon Dioxide 19.4 mmol/L (21.0-32.0); Chloride 103 mmol/L (98-108); Creatinine, Serum 0.68 mg/dL (0.70-1.20); EST Glomerular Filtration Rate 122 (>60); Estimated Creatinine Clearance 119.78 ml/min (50-250); Globulin 2.5 g/dL (2.2-4.2); Glucose 63 mg/dL (70-99); Potassium 3.8 mmol/L (3.3-5.1); Sodium Level 135 mmol/L (133-145); Total Bilirubin 1.26 mg/dL (0.00-1.30)
--- NOTE | 2024-12-13 10:47 | PN_ITS ---
Subjective Subjective Patient seen and examined. She still complains of abdominal pain, mainly in the right lower quadrant. She denies any nausea vomiting or diarrhea. She did have constipation a few days ago but that was relieved with a bowel movement prior to her coming in. Review of systems otherwise negative. Objective Data Objective Data Vital Signs: Vital Signs Temp Pulse Resp BP Pulse Ox O2 Del Method 97.5 F L 64 15 118/61 96 Room Air 12/13/24 07:51 12/13/24 07:51 12/13/24 07:51 12/13/24 07:51 12/13/24 07:51 12/13/24 07:51 Oxygen Delivery Method Room Air Weight: 158 lb 15.253 oz Body Mass Index (BMI) 24.9 Intake & Output: Intake and Output for Last 24 Hours 12/11/24 12/12/24 12/13/24 23:59 23:59 23:59 Intake Total 1000 / 1000 560 / 560 Balance 1000 / 1000 560 / 560 Lab / Micro Data 12/13/24 06:29 12/13/24 06:29 Labs: Laboratory Results - last 24 hr 12/12/24 11:56: WBC 9.9, RBC 4.62, Hgb 13.7, Hct 40.3, MCV 87.2, MCH 29.7, MCHC 34.0, RDW Std Deviation 39.1, RDW Coeff of [place] 12.2, Plt Count 226, MPV 9.1, Immature Gran % (Auto) 0.700, Neut % (Auto) 82.3 H, Lymph % (Auto) 7.1 L, [place] % (Auto) 9.2, Eos % (Auto) 0.5, Baso % (Auto) 0.2, Absolute Neuts (auto) 8.2 H, A bsolute Lymphs (auto) 0.70 L, Nucleated RBC % 0, ESR 5, Sodium 136, Potassium 3.7, Chloride 103, Carbon Dioxide 24.4, Anion Gap 9, BUN 9, Creatinine 0.71, Estim Creat Clear Calc 114.72, Est GFR (MDRD) Non-Af 119, BUN/Creatinine Ratio 12.3, Glucose 96, Calcium 9.2, Total Bilirubin 0.92, AST 17, ALT 15, Alkaline Phosphatase 61, C-React Prot Ext Range 43.30 H, Total Protein 6.7, Albumin 4.2, Globulin 2.5, Albumin/Globulin Ratio 1.7, Lipase 16, Procalcitonin 0.07, Serum , Qual NEGATIVE 12/12/24 12:50: Urine Color Yellow, Urine Clarity Clear, Urine pH 7.0, Ur Specific [place] 1.005, Urine Protein Negative, Urine Glucose (UA) Normal, Urine Ketones Negative, Urine Occult Blood Negative, Urine Nitrite Negative, Urine Bilirubin Negative, Urine Urobilinogen Normal, Ur Leukocyte Esterase 25 H, Urine RBC 0 SEEN, Urine WBC 0-5 SEEN, Ur Squamous Epith Cells 0-5 SEEN, Urine Bacteria 0 SEEN, Urine Mucus 0 SEEN 12/13/24 06:29: WBC 6.5, RBC 4.08 L, Hgb 12.0, Hct 36.3 L, MCV 89.0, MCH 29.4, MCHC 33.1, RDW Std Deviation 39.5, RDW Coeff of [place] 12.1, Plt Count 219, MPV 9.4, Immature Gran % (Auto) 0.200, Neut % (Auto) 72.4 H, Lymph % (Auto) 18.1 L, [place] % (Auto) 7.0, Eos % (Auto) 1.7, Baso % (Auto) 0.6, Absolute Neuts (auto) 4.7, Absolute Lymphs (auto) 1.17, Nucleated RBC % 0, Sodium 135, Potassium 3.8, Chloride 103, Carbon Dioxide 19.4 L, Anion Gap 13, BUN 14, Creatinine 0.68 L, Estim Creat Clear Calc 119.78, Est GFR (MDRD) Non-Af 122, BUN/Creatinine Ratio 20.0, Glucose 63 L, Calcium 8.4, Total Bilirubin 1.26, AST 14, ALT 12, Alkaline Phosphatase 56, Total Protein 6.0, Albumin 3.5, Globulin 2.5, Albumin/Globulin Ratio 1.4 Radiography Diagnostic Testing: Radiology Impression Abdomen/Pelvis CT 12/12/24 13:00 IMPRESSION: 1. Cholelithiasis without evidence of acute cholecystitis. If clinical concern for gallbladder pathology, limited right upper quadrant ultrasound could be obtained for further evaluation. 2. Enlarged, globular uterus which may be normal, or secondary to adenomyosis, or endometriosis. 3. Enlarged right ovary with multiple simple cysts. If concern for ovarian pathology, pelvic ultrasound could be obtained for further evaluation. 4. Nondependent gas within the urinary bladder. Correlation with recent instrumentation recommended. Reading Location: [id number] Transvaginal US 12/12/24 14:20 IMPRESSION: 1. No convincing evidence of ovarian torsion. 2. 1.6 cm RIGHT ovarian probable corpus luteal cyst, which can be a self-limited source of abdominopelvic pain, O-RADS 1, no follow-up needed. 3. Small volume pelvic free fluid, potentially physiologic in this demographic. 4. 1.6 cm presumed uterine fibroid. 5. Additional description as above. Reading Location: [id number] Gallbladder Ultrasound 12/12/24 18:50 IMPRESSION: Cholelithiasis. Small amount of ascites. Reading Location: [id number] Abdomen CT 12/12/24 19:45 IMPRESSION: Focal colitis of the proximal transverse colon without abscess or perforation. Differential diagnosis includes infectious colitis or diverticulitis even though no diverticular seen. Cholelithiasis. Reading Location: [facility] Physical Exam Const alert and oriented x3 Constitutional Narrative: in moderate distress due to abdominal pain General Appearance: cooperative and well developed HEENT normocephalic, head/scalp atraumatic, moist oral mucous membranes and oropharynx normal Eyes PERRL and EOMs intact bilaterally Neck no lymphadenopathy and supple Lymph Lymphatic: no lymphadenopathy noted Resp normal respiratory effort, normal air movement and clear to auscultation bilaterally Cardio regular rate, regular rhythm, S1 normal heart sound, S2 normal heart sound and no murmurs GI normal to inspection, nondistended, normoactive bowel sounds GI Narrative: moderate right lower quadrant tenderness, no guarding or rebound tenderness. Extremity normal capillary refill, no clubbing, cyanosis or edema and no calf tenderness General Extremity: no tenderness to palpation of joints or extremities Skin General Skin Exam: no breakdown Neuro CN's II-XII intact bilaterally, no focal motor deficits and no sensory deficits noted Motor Exam: strength 5/5 throughout and general weakness Psych thought process normal and cooperative Activity / Motor Behavior: restless Assessment & Plan Assessment/Plan (1) Focal active colitis: PLAN: Plan #Acute colitis * admitted with a complaint of abdominal pain. * CT abdomen showed focal colitis in the proximal transverse colon without any abscess or perforation. * gallbladder USG showed cholelithiasis and small amount of ascites * transvaginal US showed no evidence of ovarian torsion and 1.6cm right ovarian corpus luteal cyst and small volume pelvic free fluid, potentially physiologic, and 1.6cm presumed uterine fibroid. * currently on clear liquid diet. ESR WNL but CRP was markedly elevated. * on IV zosyn. Will consult gastroenterology due to persistent abdominal pain * continue clear liquid diet for now * hydrate with IVF NS @ 100cc/hr * IV morphine, PO oxycodone prn for pain. * #Anxiety and depression: On duloxetine #Nicotine dependence: Smokes e-cigarettes. Counseled to quit. #DVT Prophylaxis: Low risk. Encourage ambulation. Charges/Coding Visit Charges Inpatient E&M: 54762 Subs Hosp L2
[2024-12-13] MEDS: Morphine 2 MG/ML Syringe IV (11:04)
[2024-12-13] MEDS: 0.9% Normal Saline (100mL Bag) 100 ML 15 ML IV (13:53)
[2024-12-13] MEDS: Piperacil/Tazobactam 3.375 GM/50 ML ML IV ×2 (13:55→20:42)
[2024-12-13 14:00] VITALS: BP 116/61; PULSE 87; RESP 15; TEMP 36.3; O2SAT 96
[2024-12-13] MEDS: Acetaminophen 325 MG Tablet 650 MG PO (17:14)
[2024-12-13] MEDS: Bisacodyl 5 MG Tablet 20 MG PO (20:32)
[2024-12-13] MEDS: Polyethylene Glycol 3350 BOWEL PREP PO (20:32)
[2024-12-13 20:43] VITALS: BP 121/84; PULSE 61; RESP 15; TEMP 36.6; O2SAT 98
--- NOTE | 2024-12-13 22:31 | EX.PCM.CON.G ---
HPI Consult Data Date of Consult: 12/13/24 HPI Narrative Reason for Consultation: Abdominal pain HPI Narrative: LASHA COTTRELL, is a 29-year-old female with past medical history of x 2 and tubal ligation, depression presents for evaluation of right lower quadrant abdominal pain. Patient states yesterday she developed diffuse abdominal pain. She thought she was constipated.Her pain is located more in the right lower quadrant. CT scan of the Abdomen/Pelvis: Short segment of proximal transverse colon demonstrates wall thickening and stranding of the surrounding fat along the superior margin consistent with focal colitis. This may be secondary to infectious colitis or diverticulitis even though no diverticula are seen. No loculated fluid collection to suggest abscess. No pneumoperitoneum to suggest perforation. Appendix: Unremarkable. [facility] Medical History Vaping nicotine dependence, tobacco product Anxiety and depression ADD (attention deficit disorder) Home Medications ?Medication ?Instructions ?Recorded ?Last Taken ?Type duloxetine 60 mg capsule,delayed 60 mg PO DAILY 05/02/23 12/12/24 History release ferrous sulfate 325 mg (65 mg 325 mg PO DAILY 05/02/23 12/11/24 History iron) tablet (Feosol) acetaminophen 325 mg tablet (Aphen) 650 mg PO Q4H PRN pain 12/12/24 12/12/24 History celecoxib 200 mg capsule 200 mg PO BID PRN pain 12/12/24 12/11/24 History dextroamphetamine-amphetamine 5 mg 1 tab PO DAILY 12/12/24 12/07/24 History tablet dextroamphetamine-amphetamine ER 1 cap PO DAILY 12/12/24 12/07/24 History 25 mg 24hr capsule,extend release ergocalciferol (vitamin D2) 1,250 1,250 mcg PO QWEEK 12/12/24 12/10/24 History mcg (50,000 unit) capsule Allergy/AdvReac Type Severity Reaction Status Date / Time No Known Allergies Allergy Verified 12/12/24 11:21 Family History Mother Bowel disease Father Hypertension Heart disease Cancer Renal CA CVA (cerebral vascular accident) PAF (paroxysmal atrial fibrillation) Surgical History History of bilateral tubal ligation H/O section Social History household members: significant other and children Smoking Status: Current every day smoker tobacco type: e-cigarettes Electronic Cigarette Use: with nicotine alcohol intake: never substance use type: does not use ROS Constitutional Constitutional: Denies fatigue, fever(s), poor appetite, weight gain or weight loss Gastrointestinal Gastrointestinal: Denies belching, bloating, change in bowel habits, change in stool character, chewing difficulty, coffee ground emesis, constipation, cramping, diarrhea, dyspepsia, dysphagia, early satiety, excessive flatus, fecal incontinence, heartburn, hematemesis, hematochezia, hemorrhoids, loose stools, melena, nausea, odynophagia, rectal bleeding, tenesmus, vomiting or weight changes Physical Exam Const alert, oriented x3, no apparent distress and healthy appearing General Appearance: cooperative GI normal to inspection, nondistended, normoactive bowel sounds, soft to palpation, non-tender and non-distended Percussion: normal to percussion Rectal Exam: deferred Lab / Micro Data 12/13/24 06:29 12/13/24 06:29 Labs: Laboratory Results - last 24 hr 12/12/24 11:56: ESR 5, C-React Prot Ext Range 43.30 H, Procalcitonin 0.07 12/13/24 06:29: WBC 6.5, RBC 4.08 L, Hgb 12.0, Hct 36.3 L, MCV 89.0, MCH 29.4, MCHC 33.1, RDW Std Deviation 39.5, RDW Coeff of [place] 12.1, Plt Count 219, MPV 9.4, Immature Gran % (Auto) 0.200, Neut % (Auto) 72.4 H, Lymph % (Auto) 18.1 L, [place] % (Auto) 7.0, Eos % (Auto) 1.7, Baso % (Auto) 0.6, Absolute Neuts (auto) 4.7, Absolute Lymphs (auto) 1.17, Nucleated RBC % 0, Sodium 135, Potassium 3.8, Chloride 103, Carbon Dioxide 19.4 L, Anion Gap 13, BUN 14, Creatinine 0.68 L, Estim Creat Clear Calc 119.78, Est GFR (MDRD) Non-Af 122, BUN/Creatinine Ratio 20.0, Glucose 63 L, Calcium 8.4, Total Bilirubin 1.26, AST 14, ALT 12, Alkaline Phosphatase 56, Total Protein 6.0, Albumin 3.5, Globulin 2.5, Albumin/Globulin Ratio 1.4 Assessment & Plan Assessment/Plan (1) Focal active colitis: PLAN: Plan The patient is a 29 y/o F presents [facility] ED on 12/12/24 with onset of right lower quadrant abdominal discomfort. Focal colitis in the proximal transverse colon without any abscess or perforation: The different diagnosis for this colitis and colon in a setting of abdominal pain with cramping is ischemic colitis, infectious colitis, less likely inflammatory bowel disease. She will undergo colonoscopy to evaluate a lower tract. She was explaining alternatives, benefits of including bleeding, common infection, appropriate accommodation from resident to . Charges/Coding Visit Charges Inpatient E&M: 23278 Init Hosp L3
[2024-12-14] VITALS (12 sets, daily range): BP systolic 104–127; BP diastolic 62–92; PULSE 58–81; RESP 13–18; TEMP 36.4–36.9; O2SAT 96–100; BMI 25.0
[2024-12-14] MEDS: Ketorolac 30 MG/ML Syringe IV (05:04)
[2024-12-14] MEDS: Piperacil/Tazobactam 3.375 GM/50 ML ML IV ×3 (05:04→22:55)
[2024-12-14 06:09] LABS: Absolute Lymphocyte Count 0.88 X10^3/uL (0.83-4.51); Basophil# 0.03 X10^3/uL; Basophil% 0.7 % (0-1); Eosinophil# 0.12 X10^3/uL; Eosinophils% 2.7 % (0-5); Hematocrit 35.1 % (37-47); Hemoglobin 12.2 g/dL (12.0-15.0); Lymphocyte # 0.88 X10^3/ul (0.83-4.51); Mean Corp Hgb Conc 34.8 g/dL (32-36); Mean Corpuscular Hgb 30.2 pg (27.0-32.0); Mean Corpuscular Volume 86.9 fL (81-99); Mean Platelet Vol. 9.3 fl (6.2-12.0); Monocyte% 9.1 % (0-10); NRBC Flagged by Analyzer 0 % (0-5); Neutrophil # 2.95 X10^3/uL (2.7-7.7); Platelet Count 261 K/mm3 (150-450); RBC Distribution Width CV 11.8 % (11.6-14.6); RBC Distribution Width SD 37.8 fl (35.1-43.9); Red Blood Count 4.04 M/mm3 (4.2-5.4); White Blood Count 4.4 K/mm3 (4.4-11.0)
--- NOTE | 2024-12-14 06:16 | EKG12_ITS ---
Test Reason : P Blood Pressure : */* mmHG Vent. Rate : 65 BPM Atrial Rate : 65 BPM P-R Int : 164 ms QRS Dur : 82 ms QT Int : 392 ms P-R-T Axes : 34 75 69 degrees QTcB Int : 407 ms Normal sinus rhythm with sinus arrhythmia Nonspecific ST abnormality Abnormal ECG No previous ECGs available Confirmed by YANN BERG, MAYELA ([id number]), senior technical editor LYLA WHITE ([id number] on 12/17/2024 10:09:32 AM Referred By: Zane Linder Confirmed By: MAYELA LERNER MD
[2024-12-14 06:31] LABS: Anion Gap 9 (5-15); BUN 6 mg/dL (4-19); BUN/Creat Ratio 9.5 RATIO (10-20); Calcium,Total 8.7 mg/dL (7.6-11.0); Carbon Dioxide 22.1 mmol/L (21.0-32.0); Chloride 105 mmol/L (98-108); Creatinine, Serum 0.62 mg/dL (0.70-1.20); EST Glomerular Filtration Rate 124 (>60); Estimated Creatinine Clearance 131.37 ml/min (50-250); Glucose 89 mg/dL (70-99); Potassium 4.1 mmol/L (3.3-5.1); Sodium Level 136 mmol/L (133-145)
[2024-12-14 07:18] LABS: Color, Urine Yellow (Yellow); Glucose, Dipstick Normal (Normal); Ketone-Dipstick Negative (Negative); Leukocyte Esterase-Dipstick Negative /ul (Negative); Nitrite-Dipstick Negative (Negative); Occult Blood-Urine Negative /ul (Negative); Protein-Dipstick Negative (Negative); Urine Bilirubin Dipstick Negative (Negative); Urine Clarity Clear (Clear); Urine Urobilinogen Normal (Normal)
[2024-12-14] MEDS: Morphine 2 MG/ML Syringe IV ×2 (07:50→20:49)
[2024-12-14] MEDS: 0.9% Saline Lock 10 ML Syringe IV ×3 (07:50→20:49)
--- NOTE | 2024-12-14 09:27 | PN.HOSP_ITS ---
Subjective Subjective Continues to have pain though it is little bit better since admission. Plan for colonoscopy today Objective Data Objective Data Vital Signs: Vital Signs Temp Pulse Resp BP Pulse Ox O2 Del Method 98.0 F 70 13 110/68 99 Room Air 12/14/24 07:46 12/14/24 07:46 12/14/24 07:46 12/14/24 07:46 12/14/24 07:46 12/14/24 07:46 Oxygen Delivery Method Room Air Weight: 159 lb 9.835 oz Body Mass Index (BMI) 25.0 Intake & Output: Intake and Output for Last 24 Hours 12/13/24 12/14/24 12/15/24 03:59 03:59 03:59 Intake Total 1110 / 1110 4220.50 / 4220.50 50 / 50 Balance 1110 / 1110 4220.50 / 4220.50 50 / 50 Lab / Micro Data 12/14/24 05:15 12/14/24 05:15 Labs: Laboratory Results - last 24 hr 12/13/24 07:00: Urine Color Yellow, Urine Clarity Clear, Urine pH 6.0, Ur Specific [place] 1.020, Urine Protein Negative, Urine Glucose (UA) Normal, Urine Ketones Negative, Urine Occult Blood Negative, Urine Nitrite Negative, Urine Bilirubin Negative, Urine Urobilinogen Normal, Ur Leukocyte Esterase Negative 12/14/24 05:15: WBC 4.4, RBC 4.04 L, Hgb 12.2, Hct 35.1 L, MCV 86.9, MCH 30.2, M CHC 34.8 D, RDW Std Deviation 37.8, RDW Coeff of [place] 11.8, Plt Count 261, MPV 9.3, Immature Gran % (Auto) 0.500, Neut % (Auto) 67.0, Lymph % (Auto) 20.0, [place] % (Auto) 9.1, Eos % (Auto) 2.7, Baso % (Auto) 0.7, Absolute Neuts (auto) 3.0, Absolute Lymphs (auto) 0.88, Nucleated RBC % 0, Sodium 136, Potassium 4.1, Chloride 105, Carbon Dioxide 22.1, Anion Gap 9, BUN 6, Creatinine 0.62 L, Estim Creat Clear Calc 131.37, Est GFR (MDRD) Non-Af 124, BUN/Creatinine Ratio 9.5 L, Glucose 89, Calcium 8.7 Physical Exam Narrative General: Alert, Oriented x3, Cooperative, No apparent distress HEENT: Atraumatic, PERRLA, EOMI, Normocephalic Oral: Moist Mucosa Neck: Supple, No JVD Lungs: Clear to auscultation, Normal air movement, No rhonchi, No wheeze, No rales Cardiovascular: Regular rate, Regular Rhythm, Normal S1, Normal S2, No murmurs Abdomen: Soft, mildly tender right lower quadrant, Non-Distended, No Hepato- splenomegaly Extremities: No edema, Capillary Refill Less than 3 Seconds Skin: No rashes, No breakdown Musculoskeletal: No Tenderness to Palpation of Joints or Extremities Neurological: No focal neurological deficits, Motor Exam 5/5 strength throughout, Sensory exam intact to light touch and pain Psych/Mental Status: Flat Assessment & Plan Assessment/Plan (1) Focal active colitis: PLAN: Plan #Acute colitis * admitted with a complaint of abdominal pain. * CT abdomen showed focal colitis in the proximal transverse colon without any abscess or perforation. * gallbladder USG showed cholelithiasis and small amount of ascites * transvaginal US showed no evidence of ovarian torsion and 1.6cm right ovarian corpus luteal cyst and small volume pelvic free fluid, potentially physiologic, and 1.6cm presumed uterine fibroid. * currently on clear liquid diet. ESR WNL but CRP was markedly elevated. * on IV zosyn. Will consult gastroenterology due to persistent abdominal pain * continue clear liquid diet for now * hydrate with IVF NS @ 100cc/hr * IV morphine, PO oxycodone prn for pain. * 12/14/2024: Plan for colonoscopy today #Anxiety and depression: On duloxetine #Nicotine dependence: Smokes e-cigarettes. Counseled to quit. #DVT Prophylaxis: Low risk. Encourage ambulation. Charges/Coding Visit Charges Inpatient E&M: 28115 Subs Hosp L2
--- NOTE | 2024-12-14 09:32 | PRE.ANES_ITS ---
ASA Classification* ASA Classification ASA Classification: 2 Assessment & Plan Anesthesia* Anesthesia Assessment Anesthesia Assessment: Discussed sedation and/or anesthesia options, risks, benefits, and alternatives with patient/parents/legal guardian/POA. Questions invited. The patient/parents/legal guardian/POA seems to understand and agrees to proceed with anesthesia plan. Reviewed the physical assessment, medical history, allergy history and patient home medications list prior to surgery/procedure/anesthetic and documented any changes. Performed airway and anesthesia risk assessments. Anesthesia Type Anesthesia Type: MAC Anesthesia Focused Assessment* Temperature: 98.0 F Pulse Rate: 70 Blood Pressure: 110/68 Respiratory Rate: 13 Pulse Ox: 99 Airway Assessment Mouth opens: >3 cm Mallampati Score: II Focused Labs Anesthesia Preop lab: CBC WBC 4.4 K/mm3 (4.4-11.0) 12/14/24 05:15 12/14/24 RBC 4.04 M/mm3 (4.2-5.4) L 12/14/24 05:15 12/14/24 Hgb 12.2 g/dL (12.0-15.0) 12/14/24 05:15 12/14/24 Hct 35.1 % (37-47) L 12/14/24 05:15 12/14/24 Plt Count 261 K/mm3 (150-450) 12/14/24 05:15 12/14/24 CHEMISTRY Potassium 4.1 mmol/L (3.3-5.1) 12/14/24 05:15 12/14/24 Sodium 136 mmol/L (133-145) 12/14/24 05:15 12/14/24 BUN 6 mg/dL (4-19) 12/14/24 05:15 12/14/24 Creatinine 0.62 mg/dL (0.70-1.20) L 12/14/24 05:15 Glucose 89 mg/dL (70-99) 12/14/24 05:15 12/14/24 TSH 1.41 uIU/mL (0.358-3.74) 09/27/18 12:15 COAG Pre-Assessment Diagnosis/Proposed Procedure Planned Operative Procedure(s): colonoscopy Anesthesia History 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 When Was Last Pacemaker Check QUESTION #4 FULL TEXT: You/Your Family Experience fever (hyperthermia) with Anesthesia Last Oral Intake Last Oral intake: Last Oral Intake NPO since 00:30 12/14/24 05:29 Meds taken in AM with sips of No 12/14/24 05:29 water? 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 processing technician: PONV - biofuels processing technician Female HX of Motion Sickness HX of N/V After Surgery Non-Smoker Duration of Surgery greater than 60 minutes Number of Risk Factors PONV Score Height & Weight Height & Weight: Anesthesia: Height & Weight Height 5 ft 7 in 12/14/24 05:29 Weight: 72.4 kg 12/14/24 05:29 Body Mass Index (BMI) 25.0 12/14/24 05:29 Respiratory Assessment Respiratory Assessment - biofuels processing technician: Respiratory Tract Infection Hx - biofuels processing technician Hx Respiratory Tract Infection No 12/14/24 05:29 STOP Sleep Apnea STOP Sleep Apnea - biofuels processing technician: STOP Sleep Apnea - biofuels processing technician Hx Hypertension No 12/13/24 00:06 Hx Sleep Apnea No 12/13/24 00:06 CPAP BIPAP Do you snore loudly (louder No 12/13/24 00:06 than talking or can be heard Do you often feel tired/ No 12/13/24 00:06 fatigued/ sleepy during daytime? Has anyone observed you stop No 12/13/24 00:06 breathing during sleep? STOP Results Negative 12/13/24 00:06 QUESTION #5 FULL TEXT : Do you snore loudly (louder than talking or can be heard through closed doors)? 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 Specify any problems Hx of Preganancy in last 3 No 12/13/24 00:06 Months Nurse Filling Out Transfusion MSTEFANIC 12/13/24 00:06 & Questions: Date: 12/13/24 12/13/24 00:06 Time: 00:10 12/13/24 00:06 Patient unable to answer at this time (ie. confused, unrespo /Reproduction History /Reproductive History - biofuels processing technician: /Reproductive Hx- biofuels processing technician Hx Now No 12/14/24 05:29 Gestational Age (in weeks): EDC: Hx Hx Para Hx Section SAB No 12/13/24 00:06 Active Medications Active Medications: Current Medications Generic Name Dose Route Start Last Admin Trade Name Freq PRN Reason Stop Dose Admin Acetaminophen 650 mg 12/12/24 23:55 12/13/24 17:14 Acetaminophen 325 Mg Tablet PO 650 mg Q4H PRN PRN Administration Fever, pain 1-10/10 Al Hydroxide/Mg Hydroxide 30 ml 12/12/24 23:55 Mag Hydrox/Al Hydrox/Simeth 30 Ml Udc PO Q6H PRN PRN Gastric Burning Albuterol Sulfate 2.5 mg 12/12/24 23:55 Albuterol 2.5 Mg/3 Ml Vial.Neb. INHALATION Q2H PRN PRN Dyspnea, wheezing Duloxetine HCl 60 mg 12/13/24 10:00 12/13/24 07:55 Duloxetine Hcl 60 Mg Capsule PO 60 mg DAILY MAJO Administration Guaifenesin 20 ml 12/12/24 23:55 Guaifenesin 10 Ml Udc (200mg/10ml) PO Q4H PRN PRN COUGH Hydralazine HCl 10 mg 12/12/24 23:55 Hydralazine 20 Mg/Ml Vial IV Q4H PRN PRN SBP > 160 Protocol Pantoprazole Sodium 40 mg/ 110 mls @ 330 mls/hr 12/12/24 23:55 12/13/24 21:20 Sodium Chloride IV Infused Q12 MAJO Infusion Sodium Chloride 100 mls @ 15 mls/hr 12/13/24 00:14 12/13/24 13:55 IV 0 mls/hr .Q6H40M PRN Infusion Additional IVPB Infusion Piperacillin Sod/Tazobactam Sod 3.375 gm in 50 mls @ 12.5 mls/hr 12/13/24 14:00 12/14/24 09:07 Zosyn IV Infused Q8 MAJO Infusion Lactated Ringer's 1,000 mls @ 15 mls/hr 12/14/24 09:30 IV .Q48H MAJO Morphine Sulfate 2 mg 12/12/24 23:55 12/14/24 07:50 Morphine 2 Mg/Ml Syringe IV 2 mg Q3H PRN PRN Administration Pain Score 6-10 Nicotine 21 mg 12/12/24 23:55 Nicotine 21 Mg Patch TD DAILY PRN PRN nicotine craving Nutritional Formula (Lactose Free) 120 ml 12/13/24 08:00 12/14/24 07:21 Ensure Clear 120 Ml Liquid PO Not Given TIDCM MAJO Ondansetron HCl 4 mg 12/12/24 23:55 Ondansetron 4 Mg/2 Ml Vial IV Q8H PRN PRN NAUSEA/VOMITING Oxycodone HCl 5 mg 12/12/24 23:55 12/13/24 23:42 Oxycodone 5 Mg Tablet PO 5 mg Q4H PRN PRN Administration Pain Score 4-10 Prochlorperazine Edisylate 5 mg 12/12/24 23:55 Prochlorperazine 10 Mg/2 Ml Vial IV Q4H PRN PRN Breakthrough nausea/vomiting Senna/Docusate Sodium 2 tablet 12/12/24 23:55 Senna/Docusate Sodium 1 Tablet PO BID PRN PRN Constipation Sodium Chloride 10 - 40 ml 12/13/24 00:14 12/14/24 09:09 0.9% Saline Lock 10 Ml Syringe IV 10 ml UD PRN Administration SALINE FLUSH Temazepam 15 mg 12/12/24 23:55 Temazepam 15 Mg Capsule PO QHS PRN PRN INSOMNIA PFSH Medical History Vaping nicotine dependence, tobacco product Anxiety and depression ADD (attention deficit disorder) Home Medications ?Medication ?Instructions ?Recorded ?Last Taken ?Type duloxetine 60 mg capsule,delayed 60 mg PO DAILY 12/12/24 History release ferrous sulfate 325 mg (65 mg 325 mg PO DAILY 05/02/23 12/11/24 History iron) tablet (Feosol) acetaminophen 325 mg tablet (Aphen) 650 mg PO Q4H PRN pain 12/12/24 12/12/24 History celecoxib 200 mg capsule 200 mg PO BID PRN pain 12/1212/11/24 History dextroamphetamine-amphetamine 5 mg 1 tab PO DAILY 11/1512/07/24 History tablet dextroamphetamine-amphetamine ER 1 cap PO DAILY 12/07/24 History 25 mg 24hr capsule,extend release ergocalciferol (vitamin D2) 1,250 1,250 mcg PO QWEEK 0 12/12/24 12/10/24 History mcg (50,000 unit) capsule Allergy/AdvReac Type Severity Reaction Status Date / Time No Known Allergies Allergy Verified 12/12/24 11:21 Family History Mother Bowel disease Father Hypertension Heart disease Cancer Renal CA CVA (cerebral vascular accident) PAF (paroxysmal atrial fibrillation) Surgical History History of bilateral tubal ligation H/O section Social History household members: significant other and children Smoking Status: Current every day smoker tobacco type: e-cigarettes Electronic Cigarette Use: with nicotine alcohol intake: never substance use type: does not use Review of Systems (Anesthesia) ROS Narrative System reviewed and no additional complaints, except as documented.
[2024-12-14] MEDS: Lactated Ringers 1,000 ML 15 ML IV (09:33)
--- NOTE | 2024-12-14 09:44 | NURSING ---
0920-pt off unit via bed for procedure
--- NOTE | 2024-12-14 10:30 | COLBX_PTH ---
PATIENT: LASHA COTTRELL LOC: MS3 U#:[id number] AGE/SX: 29/F ROOM: MS308 RE12/12/[address]: Dr. Ana Ruiz MD : 1995 BED: 1 DIS: 12/16/2024 SPEC #: [id number] RECD: 12/14/24 13:11 STATUS: NOLAN WHEELER #: [id number] MARI: 12/14/24 10:[address]: Silverio Barclay DEPT: SURGICAL PATHOLOGY RECD BY: Basilio Chan ENTERED: 12/14/24 13:39 SP TYPE: COLON BX OTHR DR: DO Dr. Ariadna Alberts MD Dr. Nana Yaa Koram, MD Dr. Nicholas F Kotsonis, MD Jessica Ungerer, SECURITY PROJECT MANAGER-C Tissues: A - Ileum, NOS B - Cecum, NOS C - COLON BIOPSY D - Rectum, NOS Procedures: Surgery Specimen Level IV Comments: @ Ordering doctor for SUIV edited from to @ by TARA at 12/14/24 1330 @ Submitting doctor edited from to @ katerine PACHECO at 12/14/24 1339 HEADER OPERATION: Colonoscopy PRE-OP DIAGNOSIS: Focal active colitis TISSUE SUBMITTED: A- Terminal ileum biopsy, B- Cecum biopsy, C- Random colon biopsy, D- Rectal biopsy MICROSCOPIC DIAGNOSIS A. Small bowel, terminal ileum, biopsy: * Normal villous architecture with prominent mucosal lymphoid aggregate, favor reactive process. B. Colon, cecum, biopsy: * No specific pathologic change. C. Colon, random, biopsy: * No specific pathologic change. * The histologic features of microscopic colitis are not observed. D. Rectum, biopsy: * No specific pathologic change. MICROSCOPIC DESCRIPTION Slides are reviewed. GROSS DESCRIPTION A. Received in formalin in a container labeled with the patient's name, date of , and terminal ileum biopsy are 2 ospina-pink fragments of mucosal tissue measuring 0.2 x 0.2 x 0.2 cm and 0.3 x 0.3 x 0.2 cm. B. Received in formalin in a container labeled with the patient's name, date of , and cecum is a 0.4 x 0.3 x 0.3 cm fragment of ospina-pink mucosal tissue. Submitted in toto in B1. C. Received in formalin in a container labeled with the patient's name, date of , and random colon are 2 ospina-pink fragments of mucosal tissue measuring 0.3 x 0.3 x 0.3 cm and 0.5 x 0.3 x 0.3 cm. Submitted in toto in C1. D. Received in formalin in a container labeled with the patient's name, date of , and rectal biopsy are multiple small ospina-pink fragments of mucosal tissue measuring 0.6 x 0.4 x 0.3 cm in aggregate. Submitted in toto in D1. [facility] 12-14-2024 CPT:06288y0
--- NOTE | 2024-12-14 11:23 | OP.CCLET_ITS ---
12/14/2024 Naz Terrell Re : Colonoscopy procedure for Tita Heath Dear Np. Enrique This procedure was performed on Saturday, December 14, 2024. My impressions and recommendations are as follows: Impressions : - Patchy mild inflammation was found in the rectum secondary to colitis. Biopsied. - The entire examined colon is normal. Biopsied. - The examined portion of the ileum was normal. Biopsied. Recommendations : - Discharge patient to home. - Resume regular diet. - Continue present medications. - Await pathology results. - Repeat colonoscopy for surveillance based on pathology results. My findings are described in the full procedure note, which is enclosed. If I can be of further assistance, please feel free to contact me at . Sincerely, Silverio Barclay, 12/14/2024 11:23:26 AM This report has been signed electronically.
--- NOTE | 2024-12-14 11:23 | OP.COLON_ITS ---
Patient Name: Tita Heath Procedure Date: 12/14/2024 10:09 AM Date of : 1995 Age: 29 Procedure: Colonoscopy Indications: Abdominal pain in the right lower quadrant, Abnormal CT of the GI tract Providers: Silverio Barclay DO Referring MD: Zane Price Do Medicines: Monitored Anesthesia Care Patient Profile: This is a 29 year old female. Refer to note in patient chart for documentation of history and physical. Last Colonoscopy: several years ago. Complications: No immediate complications. Procedure: Pre-Anesthesia Assessment: - Prior to the procedure, a History and Physical was performed, and patient medications and allergies were reviewed. The patient is competent. The risks and benefits of the procedure and the sedation options and risks were discussed with the patient. All questions were answered and informed consent was obtained. Patient identification and proposed procedure were verified by the physician in the pre-procedure area. Mental Status Examination: alert and oriented. Airway Examination: normal oropharyngeal airway and neck mobility. Respiratory Examination: clear to auscultation. CV Examination: normal. Prophylactic Antibiotics: The patient does not require prophylactic antibiotics. Prior Anticoagulants: The patient has taken no anticoagulant or antiplatelet agents except for NSAID medication. ASA Grade Assessment: II - A patient with mild systemic disease. After reviewing the risks and benefits, the patient was deemed in satisfactory condition to undergo the procedure. The anesthesia plan was to use monitored anesthesia care (MAC). Immediately prior to administration of medications, the patient was re-assessed for adequacy to receive sedatives. The heart rate, respiratory rate, oxygen saturations, blood pressure, adequacy of pulmonary ventilation, and response to care were monitored throughout the procedure. The physical status of the patient was re-assessed after the procedure. After I obtained informed consent, the scope was passed under direct vision. Throughout the procedure, the patient's blood pressure, pulse, and oxygen saturations were monitored continuously. The colonoscope was introduced through the anus and advanced to the terminal ileum. The colonoscopy was performed without difficulty. The patient tolerated the procedure well. The quality of the bowel preparation was adequate. The terminal ileum, ileocecal valve, appendiceal orifice, and rectum were photographed. Scope In: 10:53:22 AM Scope Withdrawal Time 0 hours 11 minutes 26 seconds Scope Out: 11:11:38 AM Total Procedure Duration Time 0 hours 18 minutes 16 seconds Findings: The perianal and digital rectal examinations were normal. Patchy mild inflammation characterized by erosions was found in the rectum. Biopsies were taken with a cold forceps for histology. Verification of patient identification for the specimen was done. Estimated blood loss was minimal. The colon (entire examined portion) appeared normal. Biopsies were taken with a cold forceps for histology. Verification of patient identification for the specimen was done. Estimated blood loss was minimal. The terminal ileum appeared normal. Biopsies were taken with a cold forceps for histology. Verification of patient identification for the specimen was done. Estimated blood loss was minimal. Impression: - Patchy mild inflammation was found in the rectum secondary to colitis. Biopsied. - The entire examined colon is normal. Biopsied. - The examined portion of the ileum was normal. Biopsied. Recommendation: - Discharge patient to home. - Resume regular diet. - Continue present medications. - Await pathology results. - Repeat colonoscopy for surveillance based on pathology results. Procedure Code(s): --- Professional --- 33925, Colonoscopy, flexible; with biopsy, single or multiple CPT copyright 2021 [employer]. All rights reserved. The codes documented in this report are preliminary and upon clinical coder review may be revised to meet current compliance requirements. Silverio Barclay DO 12/14/2024 11:23:26 AM This report has been signed electronically. Number of Addenda: 0 Note Initiated On: 12/14/2024 10:09 AM
--- NOTE | 2024-12-14 11:23 | PCM.POST.ANE ---
Anesthesia: Postop Eval I Current Vital Signs Temperature: 98.5 F Pulse Rate: 67 Blood Pressure: 119/68 Respiratory Rate: 16 Pulse Ox: 100 Oxygen Delivery Method: Room Air Assessment Airway patent: Yes Spontaneous unlabored respirations: Yes Mental status: Awake nausea: No Vomiting: No Anesthesia Complication: No Fluid Hydration Crystalloid volume administer (ml): 500 Total IV fluid infused: 500 Progress Note Anesthesia document: Postop Eval 1 completed: Yes
--- NOTE | 2024-12-14 11:52 | POSTOPAN2_ITS ---
Anesthesia Postop Eval I Sum Postop Eval Completion status Anesthesia document: Postop Eval 1 completed: Yes Anesthesia Postop Eval I Summary Anesthesia Postop Eval I Summary: Anesthesia Postop Eval I: Assessment Summary Airway patent Yes 12/14/24 11:23 BACK END [email or web address] Spontaneous unlabored Yes 12/14/24 11:23 BACK END [email or web address] respirations Mental status Awake 12/14/24 11:23 BACK END [email or web address] nausea No 12/14/24 11:23 BACK END [email or web address] Vomiting No 12/14/24 11:23 BACK END [email or web address] Anesthesia Postop Eval I: Fluid Summary Crystalloid volume administer 500 12/14/24 11:23 BACK END [email or web address] (ml) Colloids volume administered ( ml) Blood Product volume administered (ml) Total IV fluid infused 500 12/14/24 11:23 BACK END [email or web address] Anesthesia Postop Eval I: Summary Notes Anesthesia Complication No 12/14/24 11:23 BACK END [email or web address] Anesthesia Complication Comment: Post-operative progress note Anesthesia: Postop Eval II Evaluation Mental status: Awake Pain Level: 0 nausea: No Vomiting: No
--- NOTE | 2024-12-14 11:52 | PCM.POSTANE2 ---
Anesthesia Postop Eval I Sum Postop Eval Completion status Anesthesia document: Postop Eval 1 completed: Yes Anesthesia Postop Eval I Summary Anesthesia Postop Eval I Summary: Anesthesia Postop Eval I: Assessment Summary Airway patent Yes 12/14/24 11:23 [email or web address] Spontaneous unlabored Yes 12/14/24 11:23 [email or web address] respirations Mental status Awake 12/14/24 11:23 [email or web address] nausea No 12/14/24 11:23 [email or web address] Vomiting No 12/14/24 11:23 [email or web address] Anesthesia Postop Eval I: Fluid Summary Crystalloid volume administer 500 12/14/24 11:23 [email or web address] (ml) Colloids volume administered ( ml) Blood Product volume administered (ml) Total IV fluid infused 500 12/14/24 11:23 [email or web address] Anesthesia Postop Eval I: Summary Notes Anesthesia Complication No 12/14/24 11:23 [email or web address] Anesthesia Complication Comment: Post-operative progress note Anesthesia: Postop Eval II Evaluation Mental status: Awake Pain Level: 0 nausea: No Vomiting: No
[2024-12-14] MEDS: Pantoprazole Sodium 40 MG in 0.9% Normal Saline (100mL MB+) 100 ML 330 MG IV ×2 (12:05→20:58)
[2024-12-14] MEDS: DULoxetine Hcl 60 MG Capsule PO (12:05)
[2024-12-14] MEDS: oxyCODONE 5 MG Tablet PO ×3 (12:05→23:01)
[2024-12-14] MEDS: Acetaminophen 325 MG Tablet 650 MG PO (12:05)
[2024-12-14] MEDS: Ensure Clear 120 ML Liquid PO (12:06)
[2024-12-14] MEDS: 0.9% Normal Saline (100mL Bag) 100 ML 15 ML IV (14:57)
[2024-12-15 04:28] VITALS: BP 114/64; PULSE 60; RESP 16; TEMP 36.9; O2SAT 97
[2024-12-15] MEDS: Piperacil/Tazobactam 3.375 GM/50 ML ML IV ×3 (05:32→22:21)
[2024-12-15 05:56] VITALS: BMI 25.0
[2024-12-15 07:20] LABS: Absolute Lymphocyte Count 1.21 X10^3/uL (0.83-4.51); Absolute Neutrophil Count 2.4 X10^3/uL (2.0-7.7); Basophil# 0.02 X10^3/uL; Basophil% 0.5 % (0-1); Eosinophil# 0.12 X10^3/uL; Hematocrit 32.9 % (37-47); Lymphocyte # 1.21 X10^3/ul (0.83-4.51); Lymphocyte % 30.7 % (19-41); Mean Corp Hgb Conc 33.4 g/dL (32-36); Mean Corpuscular Hgb 29.3 pg (27.0-32.0); Mean Corpuscular Volume 87.7 fL (81-99); Mean Platelet Vol. 9.3 fl (6.2-12.0); Monocyte# 0.23 X10^3/uL; Monocyte% 5.8 % (0-10); NRBC Flagged by Analyzer 0 % (0-5); Neutrophil # 2.35 X10^3/uL (2.7-7.7); Neutrophil % 59.7 % (47-70); Platelet Count 240 K/mm3 (150-450); RBC Distribution Width CV 11.8 % (11.6-14.6); RBC Distribution Width SD 38.1 fl (35.1-43.9); Red Blood Count 3.75 M/mm3 (4.2-5.4); White Blood Count 3.9 K/mm3 (4.4-11.0)
[2024-12-15 07:35] VITALS: O2SAT 96
[2024-12-15 08:10] VITALS: BP 134/83; PULSE 72; RESP 16; TEMP 36.7; O2SAT 98
[2024-12-15 08:14] LABS: Anion Gap 6 (5-15); BUN 11 mg/dL (4-19); BUN/Creat Ratio 14.5 RATIO (10-20); Calcium,Total 8.5 mg/dL (7.6-11.0); Carbon Dioxide 25.5 mmol/L (21.0-32.0); Chloride 110 mmol/L (98-108); Creatinine, Serum 0.72 mg/dL (0.70-1.20); EST Glomerular Filtration Rate 116 (>60); Estimated Creatinine Clearance 113.12 ml/min (50-250); Glucose 90 mg/dL (70-99); Potassium 4.3 mmol/L (3.3-5.1); Sodium Level 142 mmol/L (133-145)
[2024-12-15] MEDS: Ensure Clear 120 ML Liquid PO ×2 (08:28→12:04)
--- NOTE | 2024-12-15 10:08 | PN_ITS ---
Subjective Subjective Patient seen and examined. She still complain of abdominal pain, rating the pain at 5 out of 10. She says abdominal pain is much better. Review of systems otherwise negative. Objective Data Objective Data Vital Signs: Vital Signs Temp Pulse Resp BP Pulse Ox O2 Del Method 98.1 F 72 16 134/83 H 98 Room Air 12/15/24 08:10 12/15/24 08:10 12/15/24 08:10 12/15/24 08:10 12/15/24 08:10 12/15/24 08:10 Oxygen Delivery Method Room Air Weight: 159 lb 13.362 oz Body Mass Index (BMI) 25.0 Intake & Output: Intake and Output for Last 24 Hours 12/13/24 12/14/24 12/15/24 23:59 23:59 23:59 Intake Total 3480.50 / 3480.50 1520.75 / 2320.75 1250 / 1250 Balance 3480.50 / 3480.50 1520.75 / 2320.75 1250 / 1250 Lab / Micro Data 12/15/24 06:42 12/15/24 06:42 Labs: Laboratory Results - last 24 hr 12/15/24 06:42: WBC 3.9 L, RBC 3.75 L, Hgb 11.0 L, Hct 32.9 L, MCV 87.7, MCH 29.3, MCHC 33.4, RDW Std Deviation 38.1, RDW Coeff of Chacho 11.8, Plt Count 240, MPV 9.3, Immature Gran % (Auto) 0.300, Neut % (Auto) 59.7, Lymph % (Auto) 30.7, [place] % (Auto) 5.8, Eos % (Auto) 3.0, Baso % (Auto) 0.5, Absolute Neuts (auto) 2.4, Absolute Lymphs (auto) 1.21, Nucleated RBC % 0, Sodium 142, Potassium 4.3, Chloride 110 H, Carbon Dioxide 25.5, Anion Gap 6, BUN 11, Creatinine 0.72, Estim Creat Clear Calc 113.12, Est GFR (MDRD) Non-Af 116, BUN/Creatinine Ratio 14.5, Glucose 90, Calcium 8.5 Physical Exam Const alert, oriented x3 and no apparent distress General Appearance: cooperative HEENT normocephalic, head/scalp atraumatic, moist oral mucous membranes and oropharynx normal Eyes PERRL and EOMs intact bilaterally Neck no lymphadenopathy, supple and no JVD Lymph Lymphatic: no lymphadenopathy noted and no lymphedema noted Resp normal respiratory effort, normal air movement and clear to auscultation bilaterally Cardio regular rate, regular rhythm, S1 normal heart sound, S2 normal heart sound and no murmurs GI normal to inspection, nondistended, normoactive bowel sounds, soft to palpation and non-distended GI Narrative: mild generalised tenderness, no guarding or rebound tenderness. Extremity normal capillary refill, no clubbing, cyanosis or edema and no calf tenderness General Extremity: no tenderness to palpation of joints or extremities Skin General Skin Exam: no breakdown Neuro CN's II-XII intact bilaterally, no focal motor deficits and no sensory deficits noted Motor Exam: strength 5/5 throughout Psych thought process normal, cooperative and affect normal Appearance: appropriate Assessment & Plan Assessment/Plan (1) Focal active colitis: PLAN: Plan #Acute colitis * admitted with a complaint of abdominal pain. * CT abdomen showed focal colitis in the proximal transverse colon without any abscess or perforation. * gallbladder USG showed cholelithiasis and small amount of ascites * transvaginal US showed no evidence of ovarian torsion and 1.6cm right ovarian corpus luteal cyst and small volume pelvic free fluid, potentially physiologic, and 1.6cm presumed uterine fibroid. * currently on clear liquid diet. ESR WNL but CRP was markedly elevated. * on IV zosyn. * Gastroenterology consulted and she had colonoscopy which showed patchy mild inflammation in the rectum secondary to colitis; being normal she rates abdominal pain at 5 out of 10 today. Her diet has been advanced and she is tolerating it. * on IV morphine, PO oxycodone and tylenol prn for pain * #Anxiety and depression: On duloxetine #Nicotine dependence: Smokes e-cigarettes. Counseled to quit. #DVT Prophylaxis: Low risk. Encourage ambulation. Charges/Coding Visit Charges Inpatient E&M: 57883 Subs Hosp L2
[2024-12-15] MEDS: DULoxetine Hcl 60 MG Capsule PO (10:13)
[2024-12-15] MEDS: Pantoprazole Sodium 40 MG in 0.9% Normal Saline (100mL MB+) 100 ML 330 MG IV ×2 (10:13→21:27)
[2024-12-15 13:53] VITALS: BP 147/70; PULSE 67; RESP 16; TEMP 37; O2SAT 97
[2024-12-15 21:19] VITALS: BP 131/80; PULSE 63; RESP 16; TEMP 37; O2SAT 99
[2024-12-15] MEDS: Acetaminophen 325 MG Tablet 650 MG PO (21:26)
[2024-12-15] MEDS: 0.9% Saline Lock 10 ML Syringe IV (21:26)
[2024-12-15] MEDS: oxyCODONE 5 MG Tablet PO (21:26)
[2024-12-16 04:51] LABS: Absolute Lymphocyte Count 1.53 X10^3/uL (0.83-4.51); Absolute Neutrophil Count 3.1 X10^3/uL (2.0-7.7); Basophil# 0.02 X10^3/uL; Basophil% 0.4 % (0-1); Eosinophil# 0.08 X10^3/uL; Eosinophils% 1.6 % (0-5); Hematocrit 34.8 % (37-47); Lymphocyte # 1.53 X10^3/ul (0.83-4.51); Lymphocyte % 30.1 % (19-41); Mean Corp Hgb Conc 34.5 g/dL (32-36); Mean Corpuscular Hgb 29.6 pg (27.0-32.0); Mean Corpuscular Volume 85.7 fL (81-99); Mean Platelet Vol. 9.2 fl (6.2-12.0); Monocyte# 0.36 X10^3/uL; Monocyte% 7.1 % (0-10); NRBC Flagged by Analyzer 0 % (0-5); Neutrophil # 3.09 X10^3/uL (2.7-7.7); Neutrophil % 60.6 % (47-70); Platelet Count 274 K/mm3 (150-450); RBC Distribution Width CV 11.8 % (11.6-14.6); Red Blood Count 4.06 M/mm3 (4.2-5.4); White Blood Count 5.1 K/mm3 (4.4-11.0)
[2024-12-16 04:57] VITALS: BP 128/72; PULSE 68; RESP 16; TEMP 37; O2SAT 99
[2024-12-16 05:11] LABS: Anion Gap 8 (5-15); BUN 6 mg/dL (4-19); Calcium,Total 8.7 mg/dL (7.6-11.0); Carbon Dioxide 23.8 mmol/L (21.0-32.0); Chloride 107 mmol/L (98-108); EST Glomerular Filtration Rate 120 (>60); Estimated Creatinine Clearance 116.36 ml/min (50-250); Glucose 90 mg/dL (70-99); Potassium 3.6 mmol/L (3.3-5.1); Sodium Level 139 mmol/L (133-145)
[2024-12-16 06:00] VITALS: BMI 24.9
[2024-12-16] MEDS: Piperacil/Tazobactam 3.375 GM/50 ML ML IV (06:07)
[2024-12-16] MEDS: DULoxetine Hcl 60 MG Capsule PO (10:13)
[2024-12-16] MEDS: Pantoprazole Sodium 40 MG in 0.9% Normal Saline (100mL MB+) 100 ML 330 MG IV (10:13)
[2024-12-16] MEDS: Lactated Ringers 1,000 ML 15 ML IV (10:17)
[2024-12-16] MEDS: Acetaminophen 325 MG Tablet 650 MG PO (10:34)
[2024-12-16] MEDS: oxyCODONE 5 MG Tablet PO (10:34)
[2024-12-16 11:11] VITALS: BP 136/84; PULSE 85; RESP 16; TEMP 36.7; O2SAT 97
--- NOTE | 2024-12-16 11:32 | PCM.DC ---
Discharge Instructions Diet Discharge Diet: No restrictions DC O2, CPAP, BIPAP needs Home O2 Discharge instructions: No Dressing / Incision Discharge Activity: Return to Normal Activity Weight Bearing Status: Weight bearing as tolerated Dressing / Incision Call your doctor if you observe: Fever of 101 or Higher, Dizziness, Increased palpitations (irregular heartbeat) and - (worsening abdominal pain) Follow Up Care Test Results: Test results from this visit will be discussed in further detail at your follow-up appointment, if applicable. Discharge Plan Admission Admit Date/Time: 12/12/24 23:02 Primary Reason for Your Visit: acute colitis Attending Provider: Ana Ruiz Primary Care Provider: Radhika Enrique Consulting Providers: Ariadna Hodge; Ana Ruiz; Celso Osborn Instructions Patient Instructions: ED Understanding Colitis Discharge Orders/Prescriptions Prescriptions: New amoxicillin-pot clavulanate 875-125 mg tablet 1 tab PO BID Qty: 10 0RF Continued duloxetine 60 mg capsule,delayed release(DR/EC) 60 mg PO DAILY Patient Comments: TAKE 1 CAPSULE BY MOUTH EVERY DAY ferrous sulfate [Feosol] 325 mg (65 mg iron) tablet 325 mg PO DAILY celecoxib 200 mg capsule 200 mg PO BID PRN (Reason: pain) ergocalciferol (vitamin D2) 1,250 mcg (50,000 unit) capsule 1,250 mcg PO QWEEK dextroamphetamine-amphetamine 5 mg tablet 1 tab PO DAILY dextroamphetamine-amphetamine 25 mg capsule,extended release 24hr 1 cap PO DAILY acetaminophen [Aphen] 325 mg tablet 650 mg PO Q4H PRN (Reason: pain) Referrals / Follow Up: Silverio Barclay DO [Med Staff - Active Staff] - Within 2 Weeks Radhika Enrique [employer] [Primary Care Provider] - Within 1 Week Disposition Disposition (needs filled in before D/C Order can be placed): Home, Self Care
--- NOTE | 2024-12-16 11:34 | DS.PCM_ITS ---
Providers Date of Admission: 12/12/24 Date of Discharge: 12/16/24 Primary Care Physician: LILLIAN Terrell Consultations 12/13/24 10:46 Consult: Gastroenterology Routine Consulting Provider: [facility] Reason for Consult: colitis EMERGENT Consult: No MD Notified: Yes Date Notified: 12/13/24 Time Notified: 10:46 Method of Notification: Text Reason For Visit: INTRACTABLE ABDOMINAL PAIN, FOCAL COLITIS Diagnosis Discharge Diagnosis (1) Focal active colitis: Status: Acute Code(s): K52.9 - Noninfective gastroenteritis and colitis, unspecified Plan #Acute colitis * admitted with a complaint of abdominal pain. * CT abdomen showed focal colitis in the proximal transverse colon without any abscess or perforation. * gallbladder USG showed cholelithiasis and small amount of ascites * transvaginal US showed no evidence of ovarian torsion and 1.6cm right ovarian corpus luteal cyst and small volume pelvic free fluid, potentially physiologic, and 1.6cm presumed uterine fibroid. * currently on clear liquid diet. ESR WNL but CRP was markedly elevated. * on IV zosyn. * Gastroenterology consulted and she had colonoscopy which showed patchy mild inflammation in the rectum secondary to colitis; being normal she rates abdominal pain at 5 out of 10 today. Her diet has been advanced and she is tolerating it. * on IV morphine, PO oxycodone and tylenol prn for pain * #Anxiety and depression: On duloxetine #Nicotine dependence: Smokes e-cigarettes. Counseled to quit. #DVT Prophylaxis: Low risk. Encourage ambulation. Medications at Discharge Home Medications duloxetine 60 mg capsule,delayed release 60 mg PO DAILY 05/02/23 ferrous sulfate 325 mg (65 mg iron) tablet (Feosol) 325 mg PO DAILY 05/02/23 acetaminophen 325 mg tablet (Aphen) 650 mg PO Q4H PRN pain 12/12/24 celecoxib 200 mg capsule 200 mg PO BID PRN pain 12/12/24 dextroamphetamine-amphetamine 5 mg tablet 1 tab PO DAILY 12/12/24 dextroamphetamine-amphetamine ER 25 mg 24hr capsule,extend release 1 cap PO DAILY 12/12/24 ergocalciferol (vitamin D2) 1,250 mcg (50,000 unit) capsule 1,250 mcg PO QWEEK 12/12/24 amoxicillin 875 mg-potassium clavulanate 125 mg tablet 1 tab PO BID #10 tabs 12/16/24 Hospital Course Operations None Procedures Colonoscopy Summary of Care Provided Minutes Spent on Discharge: 55 Hospital Course: Patient is a 29-year-old female with past medical history as outlined was admitted to the ED on 12/12/2024 with a complaint of diffuse right lower quadrant pain. Her symptoms are started the day of admission and gradually worsened. There was initial concern for constipation patient subsequently had a bowel movement but pain persisted so she came into the ED. Serum test was negative and CT of the abdomen with contrast IV showed cholelithiasis without evidence of acute cholecystitis as well as enlarged right ovary with multiple cysts. Transvaginal ultrasound showed no evidence of ovarian torsion and showed a 1.6 cm right ovarian cyst and small volume of pelvic free fluid. Gallbladder ultrasound showed no evidence of acute findings. She had a repeat CT with oral contrast which showed focal colitis of the proximal transverse colon without any abscess or perforation and no diverticulosis seen. She was admitted and managed for abdominal pain due to acute colitis. She was started on IV Zosyn. Abdominal pain persisted so gastroenterology was consulted. She had colonoscopy which showed focal colitis in the rectal area. Her abdominal pain did improve and she felt better. She was started on a diet which she tolerated. She was discharged home on 12/16/2024 on p.o. Augmentin for 5-day course. She is follow- up with her primary care doctor and follow-up with gastroenterology within 1 to 2 weeks on outpatient basis. Patient seen and examined prior to discharge. She had no active complaints. She had an uneventful night. Abdominal pain was much better. Review of systems otherwise negative. Labs and vitals reviewed. Home medication reviewed and reconciled. Physical Exam Const alert, oriented x3 and no apparent distress General Appearance: cooperative, well kempt and well developed Orientation / Consciousness: awake HEENT normocephalic, head/scalp atraumatic, hearing grossly normal bilaterally, moist oral mucous membranes and oropharynx normal Mouth: oral and palatal mucosa normal Eyes PERRL, EOMs intact bilaterally and conjunctivae normal Neck no lymphadenopathy, supple and no JVD Lymph Lymphatic: no lymphadenopathy noted and no lymphedema noted Resp normal respiratory effort, normal air movement and clear to auscultation bilaterally Cardio regular rate, regular rhythm, S1 normal heart sound, S2 normal heart sound and no murmurs GI normal to inspection, nondistended, normoactive bowel sounds, soft to palpation and non-distended GI Narrative: mild generalised tenderness, no guarding or rebound tenderness. Extremity normal capillary refill, no clubbing, cyanosis or edema and no calf tenderness General Extremity: no tenderness to palpation of joints or extremities Skin no rashes or lesions noted General Skin Exam: no breakdown Neuro oriented x3, CN's II-XII intact bilaterally, moves all extremities, no focal motor deficits and no sensory deficits noted Sensorium / Orientation: awake and alert Motor Exam: strength 5/5 throughout and general weakness Psych thought process normal, cooperative and affect normal Appearance: appropriate Activity / Motor Behavior: restless Weight / BMI Weight Weight: 158 lb 11.725 oz Body Mass Index (BMI) 24.9 ABG / Lab / Microbiology Data 12/16/24 04:32 12/16/24 04:32 Laboratory: Laboratory Results - last 24 hr 12/16/24 04:32: WBC 5.1, RBC 4.06 L, Hgb 12.0, Hct 34.8 L, MCV 85.7, MCH 29.6, MCHC 34.5, RDW Std Deviation 37.0, RDW Coeff of Chacho 11.8, Plt Count 274, MPV 9.2, Immature Gran % (Auto) 0.200, Neut % (Auto) 60.6, Lymph % (Auto) 30.1, [place] % (Auto) 7.1, Eos % (Auto) 1.6, Baso % (Auto) 0.4, Absolute Neuts (auto) 3.1, Absolute Lymphs (auto) 1.53, Nucleated RBC % 0, Sodium 139, Potassium 3.6, Chloride 107, Carbon Dioxide 23.8, Anion Gap 8, BUN 6, Creatinine 0.70, Estim Creat Clear Calc 116.36, Est GFR (MDRD) Non-Af 120, BUN/Creatinine Ratio 9.0 L, Glucose 90, Calcium 8.7 D/C Instructions Discharge Diet: No restrictions Discharge Activity: Return to Normal Activity Weight Bearing Status: Weight bearing as tolerated Call your doctor if you observe: Fever of 101 or Higher, Dizziness, Increased palpitations (irregular heartbeat) and - (worsening abdominal pain) DC O2, CPAP, BIPAP Needs Home O2 Discharge instructions: No DC home with Oxygen: No Meaningful Use Info Meaningful Use Meaningful Use Diagnoses (Choose all that apply): None applicable Ischemic Stroke Statin Dosing Therapy Reference: STATIN DOSE THERAPY REFERENCE: * Patients > 75 years receive moderate or high dose statin therapy. * Patients 75 years or YOUNGER should receive HIGH intensity statin dose unless contraindicated. You will be required to document reason for non-treatment if statin daily dose does not meet guidelines. HIGH DOSE STATIN THERAPY DAILY Atorvastatin > than or = to 40 mg Rosuvastatin > than or = to 20 mg Amlodipine + Atorvastatin > than or = to 2.5/40 mg Ezetimibe + Simvastatin 10/80 mg Simvastatin 80mg Discharge Plan Admission Admit Date/Time: 12/12/24 23:02 Primary Reason for Your Visit: acute colitis Attending Provider: Ana Ruiz Primary Care Provider: Radhika Enrique Consulting Providers: Ariadna Hodge; Ana Ruiz; Celso Osborn Instructions Patient Instructions: ED Understanding Colitis Discharge Orders/Prescriptions Prescriptions: New amoxicillin-pot clavulanate 875-125 mg tablet 1 tab PO BID Qty: 10 0RF Continued duloxetine 60 mg capsule,delayed release(DR/EC) 60 mg PO DAILY Patient Comments: TAKE 1 CAPSULE BY MOUTH EVERY DAY ferrous sulfate [Feosol] 325 mg (65 mg iron) tablet 325 mg PO DAILY celecoxib 200 mg capsule 200 mg PO BID PRN (Reason: pain) ergocalciferol (vitamin D2) 1,250 mcg (50,000 unit) capsule 1,250 mcg PO QWEEK dextroamphetamine-amphetamine 5 mg tablet 1 tab PO DAILY dextroamphetamine-amphetamine 25 mg capsule,extended release 24hr 1 cap PO DAILY acetaminophen [Aphen] 325 mg tablet 650 mg PO Q4H PRN (Reason: pain) Referrals / Follow Up: Silverio Barclay DO [Med Staff - Active Staff] - Within 2 Weeks Radhika Enrique [facility] [Primary Care Provider] - Within 1 Week Disposition Disposition (needs filled in before D/C Order can be placed): Home, Self Care Charges/Coding Visit Charges Inpatient E&M: 34202 Disch Hosp >30min
== END 2024-12-16 12:36 | disposition home or self-care (01) ==
LOC: ED 23:03 → MS3 23:23
PROVIDERS: Internal Medicine Gastroenterology; Admitting Provider Family Medicine; Emergency Provider Surgery; PCP Nurse Practitioner Family; Referring Provider Surgery; Visit Provider Student in an Organized Health Care Education/Training Program
PROC: 0DJD8ZZ Inspection of Lower Intestinal Tract, Via Natural or Artificial Opening Endoscopic (ICD-10-PCS; CPT 45378; principal; 2024-12-14 10:25)
DX: K52.89 Other specified noninfective gastroenteritis and colitis (principal); D50.9 Iron deficiency anemia, unspecified; K80.20 Calculus of gallbladder without cholecystitis without obstruction; N83.291 Other ovarian cyst, right side; F32.A Depression, unspecified; F41.9 Anxiety disorder, unspecified; F90.9 Attention-deficit hyperactivity disorder, unspecified type; F17.290 Nicotine dependence, other tobacco product, uncomplicated; Z79.899 Other long term (current) drug therapy
CPT/HCPCS: 45380; 36415; 74176; 74177; 76705; 76830; 80048; 80053; 81001; 81002; 83690; 84145; 84703; 85025; 85652; 86140; 88305; 93005; 94668; 96361; 96365; 96366; 96367; 96368; 96375; 96376; 97802; 99221; 99284; Q9967; A4216; G0378; J2405

== ENCOUNTER 2025-04-26 12:11 | Emergency (ER) | payer MEDICAID, SELFPAY ==
[2025-04-26 12:12] VITALS: BP 144/87; PULSE 95; RESP 18; TEMP 36.6; O2SAT 100; BMI 22.7
--- NOTE | 2025-04-26 12:49 | ED.VIS.FEGU ---
HPI HPI - Female History of Present Illness Chief Complaint: Vag Bleeding Narrative Narrative: Patient is a 29-year-old female G2, P2 who presents to the emergency department chief complaint of abdominal pain, vaginal bleeding. Patient states that she recently started her period and notes that she has been having heavy cramps with passing large clots which is abnormal for her. Patient states that her blood pressure also spiked when she started her period and notes that it was around a systolic of 160s. States that she does not feel her normal self therefore she came here for further evaluation management. Patient denies any sick contacts. [facility] Medical History Vaping nicotine dependence, tobacco product Anxiety and depression ADD (attention deficit disorder) Home Medications ?Medication ?Instructions ?Recorded ?Last Taken ?Type duloxetine 60 mg capsule,delayed 60 mg PO DAILY 05/02/23 12/12/24 History release ferrous sulfate 325 mg (65 mg 325 mg PO DAILY 05/02/23 12/11/24 History iron) tablet (Feosol) acetaminophen 325 mg tablet (Aphen) 650 mg PO Q4H PRN pain 12/12/24 12/12/24 History celecoxib 200 mg capsule 200 mg PO BID PRN pain 12/12/24 12/11/24 History dextroamphetamine-amphetamine 5 mg 1 tab PO DAILY 12/12/24 12/07/24 History tablet dextroamphetamine-amphetamine ER 1 cap PO DAILY 12/12/24 12/07/24 History 25 mg 24hr capsule,extend release ergocalciferol (vitamin D2) 1,250 1,250 mcg PO QWEEK 12/12/24 12/10/24 History mcg (50,000 unit) capsule amoxicillin 875 mg-potassium 1 tab PO BID #10 tabs 12/16/24 Unknown Rx clavulanate 125 mg tablet Allergy/AdvReac Type Severity Reaction Status Date / Time No Known Allergies Allergy Verified 04/26/25 12:12 Family History Mother Bowel disease Father Hypertension Heart disease Cancer Renal CA CVA (cerebral vascular accident) PAF (paroxysmal atrial fibrillation) Surgical History History of bilateral tubal ligation H/O section Social History household members: significant other and children Smoking Status: Current every day smoker tobacco type: e-cigarettes Electronic Cigarette Use: with nicotine alcohol intake: never substance use type: does not use ROS ROS ED ROS Narrative Constitutional: Denies any fevers, chills, headaches, lightness, dizziness Eyes: Denies change in vision double vision blurry vision Cardiovascular: No chest pain Respiratory: No shortness of breath Abdomen: Complains of abdominal discomfort as noted above denies nausea vomit diarrhea : Complains of heavy vaginal bleeding with. As noted above Neurological: Denies numbness, weakness, tingling Musculoskeletal: Denies back pain Skin: Denies any rashes or lesions EXAM Physical Exam Narrative Exam Narrative: General: Patient was lying in bed rest comfortably did not appear to be acute distress Head: Atraumatic, normocephalic Eyes: PERRL bilaterally, EOMI bilaterally, no conjunctival injection noted Neck: Soft, supple, trachea midline Cardiovascular: Regular rate and rhythm Abdomen: Soft, nondistended, mild tenderness palpation suprapubic region no rebound or guarding on exam Extremities: +5/5 strength noted in the bilateral upper and lower extremities, radial pulses +2/4 in the bilateral extremities Neurological: Patient following commands knew that she was at [facility] the year is 2024 Skin: Warm, dry, intact no rashes or lesions noted Const Vital Signs: 04/26/25 12:12 04/26/25 14:11 Temperature 97.8 F Temperature Source Temporal Pulse Rate 95 73 Respiratory Rate 18 16 Blood Pressure 144/87 H 131/71 H Blood Pressure Mean 106 91 Pulse Ox 100 100 Oxygen Delivery Method Room Air Room Air MDM MDM MDM Narrative Medical decision making narrative: Patient is a 21-year-old female who presented to the emergency department the chief complaint of elevated blood pressure, passing large clots with her period. On the differential diagnose includes but not limited to ectopic , menorrhagia, UTI. Once workup is obtained reviewed she will be reevaluated. Patient CBC reviewed which showed no evidence leukocytosis white blood count 4.5, he was 13.5, platelet count was 243. Patient sodium is 138, potassium normal at 4, creatinine normal at 0.60. Patient AST and ALT were 19 and 16 respectively, lipase is 22 is negative. Patient urinalysis showed no evidence of infection. Reevaluation the patient patient would like to go home. Repeat abdominal exam was performed at 2:27 PM and her abdomen remains benign do not feel she warrants any imaging at this point time. She advised to rotate Tylenol and ibuprofen [id number] for pain control. She was advised to follow-up with her [facility] in the outpatient setting as she has not seen them in a fair amount of time she states. All question concerns answered she was discharged home in stable condition Lab Data Labs: Laboratory Results - last 24 hr 04/26/25 04/26/25 13:10 13:15 WBC 4.5 RBC 4.48 Hgb 13.5 Hct 39.5 MCV 88.2 MCH 30.1 MCHC 34.2 RDW Std Deviation 39.5 RDW Coeff of Chacho 12.2 Plt Count 243 MPV 9.0 Immature Gran % (Auto) 0.400 Neut % (Auto) 72.3 H Lymph % (Auto) 19.1 [place] % (Auto) 6.2 Eos % (Auto) 1.3 Baso % (Auto) 0.7 Absolute Neuts (auto) 3.3 Absolute Lymphs (auto) 0.86 Nucleated RBC % 0 Sodium 138 Potassium 4.0 Chloride 105 Carbon Dioxide 22.9 Anion Gap 10 BUN 9 Creatinine 0.60 L Estim Creat Clear Calc 135.75 Est GFR (MDRD) Non-Af 125 BUN/Creatinine Ratio 15.3 Glucose 99 Calcium 8.8 Total Bilirubin 0.58 AST 19 ALT 16 Alkaline Phosphatase 51 Total Protein 6.2 Albumin 4.1 Globulin 2.1 L Albumin/Globulin Ratio 2.0 Lipase 22 Serum , Qual NEGATIVE Urine Color Yellow Urine Clarity Sl. Cloudy Urine pH 7.0 Ur Specific Star 1.015 Urine Protein 30 H Urine Glucose (UA) Normal Urine Ketones 5 H Urine Occult Blood 250 H Urine Nitrite Negative Urine Bilirubin Negative Urine Urobilinogen Normal Ur Leukocyte Esterase 25 H Urine RBC 5-10 SEEN Urine WBC 0-5 SEEN Ur Squamous Epith Cells 0-5 SEEN Urine Bacteria 0 SEEN Urine Mucus 0 SEEN Discharge Plan Triage Chief Complaint: Vag Bleeding ED Provider: Robert Andrea Dx/Rx/DC Orders Clinical Impression: Menorrhagia, Moderate cramps with menses Prescriptions: No Action duloxetine 60 mg capsule,delayed release(DR/EC) 60 mg PO DAILY Patient Comments: TAKE 1 CAPSULE BY MOUTH EVERY DAY ferrous sulfate [Feosol] 325 mg (65 mg iron) tablet 325 mg PO DAILY celecoxib 200 mg capsule 200 mg PO BID PRN (Reason: pain) ergocalciferol (vitamin D2) 1,250 mcg (50,000 unit) capsule 1,250 mcg PO QWEEK dextroamphetamine-amphetamine 5 mg tablet 1 tab PO DAILY dextroamphetamine-amphetamine 25 mg capsule,extended release 24hr 1 cap PO DAILY acetaminophen [Aphen] 325 mg tablet 650 mg PO Q4H PRN (Reason: pain) amoxicillin-pot clavulanate 875-125 mg tablet 1 tab PO BID Qty: 10 0RF Primary Care Provider: ANALILIA XAVIER Referrals: ANALILIA XAVIER NP-C [Primary Care Provider] - Activity Restrictions/Additional Instructions: Follow-up with your [facility]. Your blood work did not show any acute findings here today your urine does not show evidence of urinary tract infection. Return with worsening symptoms or other concerns. Rotate Tylenol and ibuprofen [id number] when you do this you can take something every 3 hours for pain max dose of Tylenol in 24 hours 4000 mg max dose of ibuprofen in 24 hours 3200 mg. Print Language: Romanian Disposition Disposition: Home, Self Care
[2025-04-26] MEDS: 0.9% Normal Saline (1000mL) 1,000 ML 999 ML IV (13:20)
[2025-04-26 13:23] LABS: Hematocrit 39.5 % (37-47); Hemoglobin 13.5 g/dL (12.0-15.0); Immature Granulocytes Count 0.020 X10^3/uL (0.0-0.0); Mean Corp Hgb Conc 34.2 g/dL (32-36); Mean Corpuscular Volume 88.2 fL (81-99); Mean Platelet Vol. 9.0 fl (6.2-12.0); NRBC Flagged by Analyzer 0 % (0-5); Platelet Count 243 K/mm3 (150-450); RBC Distribution Width CV 12.2 % (11.6-14.6); RBC Distribution Width SD 39.5 fl (35.1-43.9); Red Blood Count 4.48 M/mm3 (4.2-5.4); White Blood Count 4.5 K/mm3 (4.4-11.0)
[2025-04-26 13:27] LABS: Mucous, Urine 0 SEEN /hpf (<or=2+)
[2025-04-26 13:37] LABS: Internal QC Validated? YES +Cl - CLEAR BKGD; Pregnancy, Serum, hCG Quali. NEGATIVE Negative; Record Kit Lot#, Serum Preg. 0000964736
[2025-04-26 13:41] LABS: Color, Urine Yellow (Yellow); Glucose, Dipstick Normal (Normal); Ketone-Dipstick 5 mg/dl (Negative); Leukocyte Esterase-Dipstick 25 /ul (Negative); Nitrite-Dipstick Negative (Negative); Occult Blood-Urine 250 /ul (Negative); Protein-Dipstick 30 mg/dl (Negative); Specific Gravity, Urine 1.015 (1.002-1.030); Urine Bilirubin Dipstick Negative (Negative)
[2025-04-26 13:50] LABS: Red Blood Cells-Urine 5-10 SEEN /hpf (0-5); Squamous Epithelial Cells - UA 0-5 SEEN /hpf (5-10)
[2025-04-26 14:06] LABS: AST(SGOT) 19 U/L (<=31); Alanine Aminotransfer ALT/SGPT 16 U/L (<=34); Albumin, Serum 4.1 g/dL (3.5-5.0); Alkaline Phosphatase 51 U/L (35-104); Anion Gap 10 (5-15); BUN 9 mg/dL (4-19); BUN/Creat Ratio 15.3 RATIO (10-20); Calcium,Total 8.8 mg/dL (7.6-11.0); Carbon Dioxide 22.9 mmol/L (21.0-32.0); Chloride 105 mmol/L (98-108); Estimated Creatinine Clearance 135.75 ml/min (50-250); Globulin 2.1 g/dL (2.2-4.2); Glucose 99 mg/dL (70-99); Lipase 22 U/L (13-75); Potassium 4.0 mmol/L (3.3-5.1)
[2025-04-26 14:11] VITALS: BP 131/71; PULSE 73; RESP 16; O2SAT 100
[2025-04-26] MEDS: Ketorolac 30 MG/ML Syringe IV (14:34)
[2025-04-26 14:35] VITALS: BP 126/68; PULSE 69; RESP 16; TEMP 36.6; O2SAT 99
== END 2025-04-26 14:47 | disposition home or self-care (01) ==
PROVIDERS: Emergency Provider Emergency Medicine; PCP Nurse Practitioner Family; Visit Provider Emergency Medicine
DX: N92.0 Excessive and frequent menstruation with regular cycle (principal); F17.210 Nicotine dependence, cigarettes, uncomplicated; F98.8 Other specified behavioral and emotional disorders with onset usually occurring in childhood and adolescence; Z98.51 Tubal ligation status; N94.6 Dysmenorrhea, unspecified
CPT/HCPCS: 80053; 81001; 83690; 84703; 85025; 96360; 96374; 99283; A4216

== ENCOUNTER 2025-05-23 23:16 | Emergency (ER) | payer MEDICAID, SELFPAY ==
[2025-05-23 23:17] VITALS: BP 152/96; PULSE 87; RESP 16; TEMP 36.9; O2SAT 100; BMI 22.9
[2025-05-24 01:24] VITALS: BP 133/94; PULSE 59; RESP 18; O2SAT 100
[2025-05-24] MEDS: Lidocaine 2% /Epi 1:100 (20ml) 20 ML VIAL INFILT (02:33)
--- NOTE | 2025-05-24 03:17 | EX.ED.DYSGE1 ---
HPI History of Present Illness Chief Complaint: Abscess Informant: patient Narrative Narrative: Patient is a 29-year-old female with past medical history of anxiety and depression as well as ADD. She states that she has had previous abscesses and staph infections on her face. She states that she has noticed increased swelling and pain along her chin. She states it has been there for 2 to 3 days and has been gradually worsening. She states once she realized the area was potentially more an infectious process and not acne she began taking leftover doxycycline. Despite a few doses of this the pain and swelling is continuing to worsen and therefore she comes in for evaluation. She denies any history of immunosuppression or concern for [facility] Medical History (Updated 05/26/25 @ 01:[address] Shen Cid, DO) Staph skin infection Vaping nicotine dependence, tobacco product Anxiety and depression ADD (attention deficit disorder) Home Medications ?Medication ?Instructions ?Recorded ?Last Taken ?Type amoxicillin 875 mg-potassium 1 tab PO BID 10 days #20 tabs 05/24/25 Unknown Rx clavulanate 125 mg tablet oxycodone-acetaminophen 5 mg-325 1 tab PO Q6H PRN pain 3 days #12 05/24/25 Unknown Rx mg tablet (Percocet) tabs Allergy/AdvReac Type Severity Reaction Status Date / Time No Known Allergies Allergy Verified 05/23/25 23:18 Family History Mother Bowel disease Father Hypertension Heart disease Cancer Renal CA CVA (cerebral vascular accident) PAF (paroxysmal atrial fibrillation) Surgical History History of bilateral tubal ligation H/O section Social History household members: significant other and children Smoking Status: Current every day smoker tobacco type: e-cigarettes Electronic Cigarette Use: with nicotine alcohol intake: never substance use type: does not use ROS ROS ED Constitutional Constitutional ED: Denies chills or fever(s) ENT ENT ED: Denies sore throat Cardiovascular Cardiovascular: Denies chest pain Respiratory/Chest Respiratory/Chest: Denies cough or dyspnea Gastrointestinal Gastrointestinal: Denies abdominal pain, diarrhea, nausea or vomiting Musculoskeletal Musculoskeletal: Denies myalgias Integumentary Reports abscess Neurologic Neurologic: Denies headache(s) Hematologic/Lymphatic Hematologic/Lymphatic: Denies easy bleeding or easy bruising EXAM Physical Exam Const Vital Signs: 05/23/25 23:17 05/24/25 01:24 Temperature 98.4 F Temperature Source Oral Pulse Rate 87 59 L Respiratory Rate 16 18 Blood Pressure 152/96 H 133/94 H Blood Pressure Mean 114 107 Pulse Ox 100 100 Oxygen Delivery Method Room Air Positive well nourished and well developed General Appearance ED: well developed HEENT HEENT Narrative: Normocephalic atraumatic Along the anterior aspect of the chin there is a 2 x 2 cm area of erythema warmth and fluctuance consistent with abscess formation. No active discharge noted. No lymphangitic streaking. No crepitance palpated Eyes PERRL and EOMs intact bilaterally Neck supple Neck Narrative: No brawny edema in the submental space to suggest Chad's angina Resp normal respiratory effort and clear to auscultation bilaterally Cardio regular rate and regular rhythm Extremity normal to inspection Neuro oriented x3, CN's II-XII intact bilaterally and no sensory deficits noted Sensorium / Orientation: alert Motor Exam: strength 5/5 throughout Psych mental status grossly normal Skin Skin Narrative: Soft tissue changes to the chin consistent with abscess formation as documented above MDM MDM MDM Narrative Medical decision making narrative: Patient arrived to the ER mildly hypertensive but overall stable vitals. She denies any history of immunosuppression or trauma and states she has had spontaneous swelling to the chin. With erythema warmth and fluctuance this is most likely abscess formation. She does not have findings to suggest Chad's angina and based on the location of the swelling I have low concern for sialoadenitis or necrotic lymphadenopathy. As physical exam does not suggest systemic infection/sepsis I feel no need for imaging or laboratory studies at this time. The patient had the abscess incised and drained as documented below. As she states has been no improvement after a few days of doxycycline I will have her stop this medication and begin Augmentin for hopefully improved infection control. As she is hemodynamically stable without findings of systemic infection or airway compromise there is no need for further intervention and she is otherwise safe for discharge Patient had the face/chin cleaned with chlorhexidine. The area was anesthetized using 4 mL of 2% lidocaine with epinephrine and local fashion. A #11 blade was used to make a 1.5 cm incision along the right inferior portion of the chin/area of fluctuance. There was blood and mild amount of purulent material expressed. Loculations were dissected with a needle siddiqi. The wound was copiously irrigated with normal saline. Patient tolerated the procedure well without complication History & Record Review Discussion w/independent historian: Patient Discharge Plan Triage Chief Complaint: Abscess ED Provider: Shen Cid Dx/Rx/DC Orders Clinical Impression: Abscess of face, Anxiety and depression, ADD (attention deficit disorder) Instructions: ED Abscess Incision And Drainage Prescriptions: New amoxicillin-pot clavulanate 875-125 mg tablet 1 tab PO BID 10 Days Qty: 20 0RF oxycodone-acetaminophen [Percocet] 5-325 mg tablet 1 tab PO Q6H PRN (Reason: pain) 3 Days Qty: 12 0RF Primary Care Provider: ANALILIA XAVIER Referrals: ANALILIA XAVIER NP-C [Primary Care Provider, [facility]] Activity Restrictions/Additional Instructions: Please take the Augmentin as directed to resolve any remaining infection. Symptoms should start to resolve over the next 48 to 72 hours. If you have any further concerns or worsening symptoms despite treatment please return to the ER for repeat evaluation Print Language: [place] Disposition Disposition: Home, Self Care Discharge Date/Time: 05/24/25 03:41
[2025-05-24 03:39] VITALS: BP 133/94; PULSE 59; RESP 18; TEMP 36.6; O2SAT 100
== END 2025-05-24 03:41 | disposition home or self-care (01) ==
PROVIDERS: Emergency Provider Emergency Medicine; PCP Nurse Practitioner Family; Visit Provider Emergency Medicine
DX: L02.01 Cutaneous abscess of face (principal); F41.9 Anxiety disorder, unspecified; F17.210 Nicotine dependence, cigarettes, uncomplicated; F32.A Depression, unspecified; F98.8 Other specified behavioral and emotional disorders with onset usually occurring in childhood and adolescence; F17.290 Nicotine dependence, other tobacco product, uncomplicated; Z98.51 Tubal ligation status
CPT/HCPCS: 10061; 99283